=== PATIENT | female | born 1950 | race African-American/Black ===

== ENCOUNTER 2016-05-13 11:25 | Emergency (ER) | payer OTHER, MEDICAID ==
[~2016-05-13] VITALS: Ht 170.2 cm; Wt 88.5 kg
[~2016-05-13 11:25] MED LIST: ALBUTEROL SULF8.5 GM INH; AZITHROMYCIN250 MG ORAL; CIPRO500 MG PO; CIPROFLOXACIN500 M2 ORAL; COLACE100 MG ORAL; CYCLOBENZAPRINE10 MG ORAL; DIOVAN HCT 3201 EAC1 ORAL; FLONASE1 SPRAYS; IBUPROFEN600 MG ORAL; KEFLEX500 MG ORAL; LEVOFLOXACIN500 MG ORAL; MACROBID100 MG ORAL; MAGNESIUM CITR296 M1 PO; NAPROXEN500 M1 ORAL; NAPROXEN500 M2 ORAL; NITROFURANTOIN100 M2 ORAL; NORCO 10/3251 EA ORAL; NORCO 5-325 TA1 EACH ORAL; PHENAZOPYRIDIN200 MG ORAL; PREDNISONE20 M1 PO; PROMETHAZINE-C118 M1 ORAL; SOMA350 MG PO; TRAMADOL HCL50 MG ORAL
[2016-05-13 11:31] VITALS: BP 155/84
--- NOTE | 2016-05-13 12:05 | Emergency Room Report ---
History of Present Illness General Chief Complaint: Pain Source: Patient Present Illness HPI The patient fell onto her R shoulder a week ago. She fell against the door and hit her right shoulder - no LOC. She is unable to raise her hand above her shoulder. The pain is still persisting. She's been taking Lizella 7.5s. In addition to that she has increase in right flank pain with history of sciatica. She's had pain like the flank pain in the past. She denies any dysuria or fever. Denies any back injury, saddle numbness, weakness. She requests a shot for pain. No headache, rashes, NVD. Allergies: Coded Allergies: AMOXICILLIN (Verified Allergy, Severe, HIVES,ITCHING, 06/04/08) PENICILLINS (Unverified Allergy, Unknown, 04/30/14) Patient History Past Medical History: see triage record Social History: Reports: smoking Social History Narrative at home Last Menstrual Period: menopause Reviewed Nursing Documentation: PMH: Agreed, PSxH: Agreed Nursing Documentation-PMH Past Medical History: No History, Except For Hx Hypertension: Yes Hx Gastrointestinal Problems: Yes - apendicitis, hysterectomy Hx Neurological Problems: No - osteoarthritis Review of Systems All Other Systems: negative except mentioned in HPI Physical Exam Vital Signs Date Time Temp Pulse Resp B/P Pulse Ox O2 Delivery O2 Flow Rate FiO2 05/13/16 11:31 97.9 73 14 155/84 97 Room Air Musculoskeletal: other - shoulder pain with decreased ROM, no crepetance or deformity. No warmth. Elbow and wrist without pain. No neck pain. Pain in lower back = musclar. Able to sit, ambulate without difficulty Neurologic: alert, oriented x3, motor strength/tone normal, DTRs symmetric, sensory intact, cerebellar normal, normal gait, speech normal Psychiatric: mood/affect normal Reflexes: 2+ knee (R), 2+ knee (L) Skin: normal inspection, no rash Medical Decision Making Diagnostic Impression: Primary Impression: Shoulder contusion Qualified Codes: S40.011A - Contusion of right shoulder, initial encounter Additional Impression: Chronic low back pain with sciatica Qualified Codes: M54.41 - Lumbago with sciatica, right side; G89.29 - Other chronic pain ER Course Patient presents with shoulder pain post fall 1 week ago. Ddx: fx, contusion, bursitis, DJD amongst others. Xray indicated. Also analgesia also indicated. She states sciatica is her usual problem. UA checked. Xray with DJD, no fx. Splint applied by tech. Position good and provides relief. Also neurovasc checked by me is normal. Pain improved (smiling). She states has enough norco. Patient stable for outpatient observation and treatment. Laboratory Tests Test 05/13/16 12:18 Urine Color Pale yellow Urine Appearance Slightly cloudy Urine pH 6.5 (4.5-8.0) Urine Specific [place] 1.010 (1.005-1.035) Urine Protein Negative (NEGATIVE) Urine Glucose (UA) Negative (NEGATIVE) Urine Ketones Negative (NEGATIVE) Urine Occult Blood 1+ (NEGATIVE) H Urine Nitrite Negative (NEGATIVE) Urine Bilirubin Negative (NEGATIVE) Urine Urobilinogen Normal MG/DL (0.0-1.0) Urine Leukocyte Esterase 3+ (NEGATIVE) H Urine RBC 2-4 /HPF (0 - 2) H Urine WBC 10-15 /HPF (0 - 2) H Urine Squamous Epithelial Cells Moderate /LPF (NONE/OCC) H Urine Bacteria Moderate /HPF (NONE) H Other X-Ray Diagnostic Results Other X-Ray Diagnostic Results : X-Ray Ordered: R shoulder EP Interpretation: Yes Findings: no fractures, no dislocation, no soft tissue swelling, other - DJD Number of Views: 3 Last Vital Signs Date Time Temp Pulse Resp B/P Pulse Ox O2 Delivery O2 Flow Rate FiO2 05/13/16 13:28 97.9 05/13/16 13:28 68 14 145/80 100 Room Air Status: improved Disposition: HOME, SELF-CARE Condition: Improved Scripts Ibuprofen* (MOTRIN*) 600 Mg Tablet 600 MG ORAL Q6H Y for For Pain, #20 TAB Prov: Xavi Mayo M.D. 05/13/16 Xavi Mayo M.D. May 13, 2016 12:05
[2016-05-13] MEDS ORDERED: Ketorolac 60mg Inj IM ONE (12:15)
[2016-05-13] MEDS ORDERED: Oxycodone/Acetaminophen 5-325 ORAL ONE (12:15)
[2016-05-13 12:38] LABS: APPEARANCE,URINE SLIGHTLY CLOUDY; KETONES,URINE NEGATIVE (NEGATIVE); LEUKOCYTE ESTERASE ,URINE 3+ (NEGATIVE); NITRITE,URINE NEGATIVE (NEGATIVE); PH,URINE 6.5 (4.5-8.0); PROTEIN,URINE NEGATIVE (NEGATIVE); UROBILINOGEN,URINE NORMAL MG/DL (0.0-1.0)
[2016-05-13] MEDS ORDERED: IBUPROFEN600 MG ORAL (13:04)
[2016-05-13 13:28] VITALS: BP 145/80
[2016-05-13 13:30] LABS: BACTERIA,URINE MODERATE /HPF; SQUAMOUS EPITHELIAL CELL,UR MODERATE /LPF (NONE/OCC)
--- NOTE | 2016-05-14 10:25 | Diagnostic Imaging Report ---
Indications: Fall, right shoulder injury and pain Technique: 3 views right shoulder. Findings: Comparison: None No fracture, dislocation, joint space widening , surrounding soft tissue swelling/foreign body/other abnormality, or other acute changes are identified. IMPRESSION: No evidence of acute injury to the right shoulder.
== END 2016-05-13 13:29 | disposition home or self-care (01) ==
LOC: EMR 12:00
DX: S40.011A Contusion of right shoulder, initial encounter (principal); M54.41 Lumbago with sciatica, right side; G89.29 Other chronic pain; Z90.710 Acquired absence of both cervix and uterus; I10 Essential (primary) hypertension; F17.200 Nicotine dependence, unspecified, uncomplicated; M19.90 Unspecified osteoarthritis, unspecified site; Z88.0 Allergy status to penicillin; Z88.1 Allergy status to other antibiotic agents; W22.09XA Striking against other stationary object, initial encounter; Y92.9 Unspecified place or not applicable; Y99.8 Other external cause status
CPT/HCPCS: 81003; 87086; 96372; 99283

== ENCOUNTER 2016-08-19 18:12 | Emergency (ER) | payer OTHER, MEDICAID ==
[~2016-08-19] VITALS: Ht 170.2 cm; Wt 86.2 kg
[2016-08-19 18:30] VITALS: BP 102/75
[2016-08-19] MEDS ORDERED: NAPROXEN500 M1 ORAL (18:42)
[2016-08-19] MEDS ORDERED: ROBAXIN-750750 MG PO (18:42)
--- NOTE | 2016-08-19 18:43 | Emergency Room Report ---
History of Present Illness General Chief Complaint: Lower Back Pain or Injury Source: Patient Present Illness HPI 66 y/o female c/o chronic right sided low back pain and right shoulder pain. States she had injured herself several months ago and was diagnosed with sciatica and shoulder pain and has occasional flair ups where she gets a shot of toradol to resolve her symptoms. States she is currently having a flair up and is requesting toradol for her pain. States pain is right lateral lumbar region and right superior / clavicle region and worse with bending and lifting and better with rest and heat. Patient denies any numbness, tingling, pressure , paralysis, cyanosis, bruising, loss of sensation, or loss of range of motion. Denies any lower extremity weakness, incontinence, foot drop, saddle anesthesia , numbness, or paralysis. Allergies: Coded Allergies: AMOXICILLIN (Verified Allergy, Severe, HIVES,ITCHING, 06/04/08) PENICILLINS (Unverified Allergy, Unknown, 04/30/14) Patient History Past Medical History: see triage record Past Surgical History: none Pertinent Family History: none Reviewed Nursing Documentation: PMH: Agreed, PSxH: Agreed Nursing Documentation-PMH Hx Hypertension: Yes Hx Gastrointestinal Problems: Yes - apendicitis, hysterectomy Hx Neurological Problems: No - osteoarthritis Review of Systems All Other Systems: negative except mentioned in HPI Physical Exam Vital Signs Date Time Temp Pulse Resp B/P Pulse Ox O2 Delivery O2 Flow Rate FiO2 08/19/16 18:24 98.2 93 14 102/75 96 Room Air Sp02 EP Interpretation: reviewed, normal General Appearance: no apparent distress, alert, GCS 15, non-toxic Head: normocephalic, atraumatic Eyes: bilateral eye PERRL, bilateral eye normal inspection ENT: normal ENT inspection Neck: full range of motion, no bony tend, supple/symm/no masses Respiratory: normal breath sounds, speaking full sentences Cardiovascular #1: normal capillary refill Musculoskeletal: back normal, gait/station normal, normal range of motion, tender - right perilumbar region and right supraclavicular region assoc w/ muscle spasm present Neurologic: alert, oriented x3, responsive, motor strength/tone normal, sensory intact, speech normal Psychiatric: judgement/insight normal, memory normal, mood/affect normal, no suicidal/homicidal ideation Reflexes: 2+ knee (R), 2+ knee (L) Skin: normal color, no rash, warm/dry, well hydrated Lymphatic: no adenopathy Medical Decision Making PA Attestation Dr. Jurado is my supervising physician with whom patient management has been discussed with. Diagnostic Impression: Primary Impression: Unspecified injury of lower back, sequela Additional Impressions: Muscle spasm of back Muscle spasm of right shoulder ER Course Pt. presents to the ED c/o low back pain, shoulder pain Ddx considered but are not limited to fracture, contusion, spinal stenosis, dislocation Vital signs: are WNL, pt. is afebrile H&PE are most consistent with muscle spasm of back ORDERS: none required at this time, the diagnosis is clinical ED INTERVENTIONS: Toradol DISCHARGE: At this time pt. is stable for d/c to home. Will provide printed patient care instructions, and any necessary prescriptions. Care plan and follow up instructions have been discussed with the patient prior to discharge. Last Vital Signs Date Time Temp Pulse Resp B/P Pulse Ox O2 Delivery O2 Flow Rate FiO2 08/19/16 18:24 98.2 93 14 102/75 96 Room Air Status: unchanged Disposition: HOME, SELF-CARE Condition: Stable Scripts Methocarbamol* (ROBAXIN-750*) 750 Mg Tablet 750 MG PO TID, #30 TAB 0 Refills Prov: IBRAHIMA TALBERT 08/19/16 Naproxen* (NAPROXEN*) 500 Mg Tablet. 500 MG ORAL TWICE A DAY, #30 TAB Prov: IBRAHIMA TALBERT 08/19/16 Patient Instructions: Low Back Sprain With Rehab-SportsMed, Trigger Point Injection Additional Instructions: Take medication as directed. Advise patient to use RICE therapy and avoid exercises for the next 2-3 weeks to help rest the muscles. Patient instructed to massage the muscles that are tight or tense, put ice for 5-7 minutes or a frozen bag of peas or cold gel pack on the area for 20 minutes at a time, a few times a day, put heat on the area to reduce pain and stiffness by either taking a hot shower or hot bath, or put a hot towel on the area for no more than 20 minutes at a time. Patient instructed to not use anything too hot that could burn your skin. IBRAHIMA TALBERT Aug 19, 2016 18:43
[2016-08-19] MEDS ORDERED: Ketorolac 30mg Inj IM ONE (18:45)
[2016-08-19 18:47] VITALS: BP 102/75
== END 2016-08-19 19:54 | disposition home or self-care (01) ==
LOC: EMR 18:30
DX: S39.92XS Unspecified injury of lower back, sequela (principal); M62.830 Muscle spasm of back; M62.838 Other muscle spasm; M25.511 Pain in right shoulder; Z88.0 Allergy status to penicillin; I10 Essential (primary) hypertension; M19.90 Unspecified osteoarthritis, unspecified site; Z90.710 Acquired absence of both cervix and uterus; X58.XXXS Exposure to other specified factors, sequela
CPT/HCPCS: 96372; 99284; J1885

== ENCOUNTER 2016-10-16 16:07 | Emergency (ER) | payer OTHER, MEDICAID ==
[~2016-10-16] VITALS: Ht 170.2 cm; Wt 84.8 kg
[~2016-10-16 16:07] MED LIST changes: +ROBAXIN-750750 MG PO
[2016-10-16 16:26] VITALS: BP 113/81
[2016-10-16] MEDS ORDERED: NORCO 10-325 T1 EACH ORAL (16:30)
--- NOTE | 2016-10-16 17:56 | Emergency Room Report ---
History of Present Illness General Chief Complaint: Headache Source: Patient Present Illness HPI 66 y/o female c/o new onset of headache x 1 week. States pain is in occipital region of head and radiates into the neck. States she had a fall in May 2016 which was the initial onset of headache and right shoulder pain. States that she sees PT and is managed for her shoulder by PCP. Takes [place] for her GARCÍA w/o improvement. Denies any current n/v/f/c/d, abd pain, back pain, photophobia, phonophobia, CP, or SOB Allergies: Coded Allergies: AMOXICILLIN (Verified Allergy, Severe, HIVES,ITCHING, 06/04/08) PENICILLINS (Unverified Allergy, Unknown, 04/30/14) Patient History Past Medical History: see triage record Past Surgical History: none Pertinent Family History: none Now: No Reviewed Nursing Documentation: PMH: Agreed, PSxH: Agreed Nursing Documentation-PMH Hx Hypertension: Yes Hx Gastrointestinal Problems: Yes - apendicitis, hysterectomy Hx Neurological Problems: No - osteoarthritis Review of Systems All Other Systems: negative except mentioned in HPI Physical Exam Vital Signs Date Time Temp Pulse Resp B/P Pulse Ox O2 Delivery O2 Flow Rate FiO2 10/16/16 16:26 98.4 80 16 113/81 98 Room Air Sp02 EP Interpretation: reviewed, normal General Appearance: no apparent distress, alert, GCS 15, non-toxic Head: normocephalic, atraumatic Eyes: bilateral eye EOMI, bilateral eye PERRL, bilateral eye normal inspection ENT: hearing grossly normal, normal pharynx, no angioedema, normal voice Neck: full range of motion, supple/symm/no masses Respiratory: chest non-tender, lungs clear, normal breath sounds, speaking full sentences Cardiovascular #1: regular rate, rhythm, no edema Gastrointestinal: non tender, soft Musculoskeletal: back normal, gait/station normal, decreased range of motion - right shoulder, other - 4/5 strength RUE, 5/5 LUE, LLE and RLE Neurologic: alert, oriented x3, responsive, bobbin handler III-XII nml as tested, motor strength/tone normal, sensory intact, speech normal, other - Unable to fully evaluate pronator drift due to shoulder injury. Romberg Negative Psychiatric: mood/affect normal Skin: normal color, no rash, warm/dry, well hydrated Medical Decision Making PA Attestation Dr. Baron is my supervising physician with whom patient management has been discussed with. Diagnostic Impression: Primary Impression: Headache Qualified Codes: G44.201 - Tension-type headache, unspecified, intractable ER Course Pt. presents to the ED c/o headache Ddx considered but are not limited to CVA, intracranial hemorrhage, concussion, skull fracture, spinal fracture Vital signs: are WNL, pt. is afebrile H&PE are most consistent with headache ORDERS: CT Head w/o contrast ED INTERVENTIONS: none required at this time. DISCHARGE: At this time pt. is stable for d/c to home. Will provide printed patient care instructions, and any necessary prescriptions. Care plan and follow up instructions have been discussed with the patient prior to discharge. Last Vital Signs Date Time Temp Pulse Resp B/P Pulse Ox O2 Delivery O2 Flow Rate FiO2 10/16/16 16:26 98.4 80 16 113/81 98 Room Air Disposition: HOME, SELF-CARE Condition: Stable Scripts Methocarbamol* (ROBAXIN-750*) 750 Mg Tablet 750 MG PO TID, #30 TAB 0 Refills Prov: IBRAHIMA TALBERT P.A. 10/16/16 Naproxen* (NAPROXEN*) 500 Mg Tablet. 500 MG ORAL TWICE A DAY for 10 Days, #20 TAB Prov: IBRAHIMA TALBERT P.A. 10/16/16 Referrals: NON PHYSICIAN (PCP) Patient Instructions: General Headache Without Cause IBRAHIMA TALBERT Oct 16, 2016 17:56
[2016-10-16] MEDS ORDERED: NAPROXEN500 M1 ORAL (18:39)
[2016-10-16] MEDS ORDERED: ROBAXIN-750750 MG PO (18:39)
[2016-10-16 19:02] VITALS: BP 113/81
--- NOTE | 2016-10-17 10:06 | Diagnostic Imaging Report ---
Indications: Headaches Technique: Spiral acquisitions obtained through the brain. Angled axial and coronal 5 x 5 mm slices were reconstructed. Total dose length product 1467 mGycm. CTDI vol(s) 70 mGy. Dose reduction achieved using automated exposure control Comparison: 03/26/2011 Findings: Lacunar infarcts are seen in the right caudate head, right posterior lentiform nucleus, anterior limb of the right internal capsule, left thalamus. No acute hemorrhage or edema. No mass effect or midline shift. Normal etienne-white differentiation. Visualized orbits and sinuses are unremarkable. Intact calvarium. There is normal for age ventricles and extra-axial CSF spaces. Mild periventricular the white matter ischemic changes noted. 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 Negative for acute intracranial bleed or mass effect This agrees with the preliminary interpretation provided overnight by Dr. Bryant The CT scanner at [facility] is accredited by the [employer] and the scans are performed using protocols designed to limit radiation exposure to as low as reasonably achievable to attain images of sufficient resolution adequate for diagnostic evaluation.
== END 2016-10-16 19:02 | disposition home or self-care (01) ==
LOC: EMR 16:42
DX: R51 Headache (principal); I10 Essential (primary) hypertension; Z90.710 Acquired absence of both cervix and uterus; Z88.0 Allergy status to penicillin
CPT/HCPCS: 70450; 99284

== ENCOUNTER 2017-01-15 21:49 | Emergency (ER) | payer OTHER, MEDICAID ==
[~2017-01-15] VITALS: Ht 170.2 cm; Wt 83.5 kg
[~2017-01-15 21:49] MED LIST changes: +NORCO 10-325 T1 EACH ORAL
--- NOTE | 2017-01-15 22:12 | Emergency Room Report ---
History of Present Illness General Chief Complaint: Abdominal Pain Source: Patient Present Illness HPI Is a 66-year-old female with history of chronic back and abdominal pain. She presents with increasing pain the last 3 weeks. Worse tonight. Pain is severe 10 out of 10. Her whole back is hurting and also abdomen. No nausea no vomiting. No diarrhea. No hematuria. No urinary complaint. No radiation. Worse with movement and palpation. Allergies: Coded Allergies: AMOXICILLIN (Verified Allergy, Severe, HIVES,ITCHING, 06/04/08) PENICILLINS (Unverified Allergy, Unknown, 04/30/14) Patient History Past Medical History: see triage record, old chart reviewed Past Surgical History: hysterectomy Pertinent Family History: none Social History: Reports: smoking Last Menstrual Period: none Now: No Immunizations: other Reviewed Nursing Documentation: PMH: Agreed, PSxH: Agreed Nursing Documentation-PMH Hx Hypertension: Yes Hx Gastrointestinal Problems: Yes - apendicitis, hysterectomy Hx Neurological Problems: No - osteoarthritis Review of Systems Eye: Denies: eye pain, blurred vision ENT: Denies: ear pain, nose congestion, throat swelling Respiratory: Denies: cough, shortness of breath Cardiovascular: Denies: chest pain, palpitations Gastrointestinal: Reports: abdominal pain, Denies: diarrhea, nausea, vomiting Musculoskeletal: Reports: back pain, Denies: joint pain Skin: Denies: rash Neurological: Denies: headache, numbness Endocrine: Denies: increased thirst, increased urine Hematologic/Lymphatic: Denies: easy bruising All Other Systems: negative except mentioned in HPI Physical Exam Vital Signs Date Time Temp Pulse Resp B/P (MAP) Pulse Ox O2 Delivery O2 Flow Rate FiO2 01/15/17 21:53 98.2 83 22 148/96 98 Room Air vitals normal Sp02 EP Interpretation: reviewed, normal General Appearance: well appearing, no apparent distress, alert Head: normocephalic, atraumatic Eyes: bilateral eye PERRL, bilateral eye EOMI ENT: hearing grossly normal, normal pharynx Neck: full range of motion, supple, no meningismus Respiratory: chest non-tender, lungs clear, normal breath sounds Cardiovascular #1: regular rate, rhythm, no murmur Gastrointestinal: normal bowel sounds, no mass, no organomegaly, no bruit, non- distended, tenderness - Diffuse tenderness Musculoskeletal: back normal, gait/station normal, normal range of motion Psychiatric: mood/affect normal Skin: warm/dry Medical Decision Making Diagnostic Impression: Primary Impression: Abdominal pain of unknown etiology Additional Impressions: UTI (urinary tract infection) Qualified Codes: N30.00 - Acute cystitis without hematuria Pancreatitis Qualified Codes: K85.90 - Acute pancreatitis without necrosis or infection, unspecified Opioid dependence Qualified Codes: F11.20 - Opioid dependence, uncomplicated ER Course Patient with acute exacerbation of chronic abdominal pain. No evidence of obstruction. We'll discharge home. Patient pain is better. Lab Results Impression labs with elevated lipase CT/MRI/US Diagnostic Results CT/MRI/US Diagnostic Results : Imaging Test Ordered: CT abdomen and pelvis Impression Read by radiologist: No now obstruction. Last Vital Signs Date Time Temp Pulse Resp B/P (MAP) Pulse Ox O2 Delivery O2 Flow Rate FiO2 01/15/17 21:53 98.2 83 22 148/96 98 Room Air Status: improved Disposition: HOME, SELF-CARE Condition: Stable Scripts Cephalexin* (KEFLEX*) 500 Mg Capsule 500 MG ORAL TID, #21 CAP 0 Refills Prov: WILBERT PAN M.D. 01/16/17 Patient Instructions: Abdominal Pain, Adult Additional Instructions: Followup your Dr. in 2-3 days. Take your pain medication. Return if worse. WILBERT PAN M.D. Jan 15, 2017 22:12
[2017-01-15] MEDS ORDERED: HYDROmorphone 1mg/ml Carpuject IVP ONE ×2 (22:15→23:30)
[2017-01-15] MEDS ORDERED: Tubing IV Cassette IV ONE (22:39)
[2017-01-15 22:55] LABS: BASOPHILS % (AUTO) 1.5 % (0.0-2.0); EOSINOPHILS % (AUTO) 1.6 % (0.0-3.0); LYMPHOCYTES % (AUTO) 7.9 % (20.0-45.0); MEAN CORPUSCULAR HEMOGLOBIN 29.2 PG (27.0-31.0); MEAN CORPUSCULAR HGB CONC 30.4 G/DL (32.0-36.0); MEAN CORPUSCULAR VOLUME 96 FL (80-99); MEAN PLATELET VOLUME 9.3 FL (6.5-10.1); MONOCYTES % (AUTO) 4.3 % (1.0-10.0); NEUTROPHILS % (AUTO) 84.6 % (45.0-75.0); PLATELET COUNT 206 K/UL (150-450); RED BLOOD COUNT 4.65 M/UL (4.20-5.40); RED CELL DISTRIBUTION WIDTH 14.9 % (11.6-14.8); WHITE BLOOD COUNT 17.5 K/UL (4.8-10.8)
[2017-01-15 22:56] LABS: APPEARANCE,URINE CLEAR; KETONES,URINE NEGATIVE (NEGATIVE); LEUKOCYTE ESTERASE ,URINE 3+ (NEGATIVE); NITRITE,URINE NEGATIVE (NEGATIVE); PH,URINE 7 (4.5-8.0); PROTEIN,URINE NEGATIVE (NEGATIVE); UROBILINOGEN,URINE NORMAL MG/DL (0.0-1.0)
[2017-01-15] MEDS ORDERED: Ketorolac 30mg Inj IV ONE (23:00)
[2017-01-15 23:03] LABS: BACTERIA,URINE OCCASIONAL /HPF; SQUAMOUS EPITHELIAL CELL,UR FEW /LPF (NONE/OCC)
[2017-01-15 23:14] LABS: ALANINE AMINOTRANSFERASE 19 U/L (12-78); ALBUMIN/GLOBULIN RATIO 1.1 (1.0-2.7); ANION GAP 7 mmol/L (5-15); ASPARTATE AMINO TRANSFERASE 15 U/L (15-37); CALCIUM 12.5 MG/DL (8.5-10.1); CARBON DIOXIDE 27 MMOL/L (21-32); CHLORIDE 105 MMOL/L (98-107); CREATININE 1.2 MG/DL (0.55-1.30); GLOMERULAR FILTRATION RATE 54.3 mL/min (>60); LIPASE 720 U/L (73-393); POTASSIUM 4.3 MMOL/L (3.5-5.1); SODIUM 139 MMOL/L (136-145); TOTAL PROTEIN 7.8 G/DL (6.4-8.2)
[2017-01-15] MEDS ORDERED: cefTRIAXone 1 GM in NS 55 ML IVPB ONE (23:30)
[2017-01-16] MEDS ORDERED: KEFLEX500 MG ORAL (00:16)
[2017-01-16 00:18] VITALS: BP 125/90
[2017-01-16 00:22] VITALS: BP 125/90
--- NOTE | 2017-01-16 09:19 | Diagnostic Imaging Report ---
Indication: Abdominal pain Technique: Spiral acquisitions obtained through the abdomen and pelvis. No oral contrast utilized, per emergency room physician request No IV contrast utilized, per referring physician request.. Multiplanar reconstructions were generated. Total dose length product a 67 mGycm. CTDIvol(s) 16 mGy. Dose reduction achieved using automated exposure control Comparison: 10/14/2013 Findings: There is some image degradation due to respiratory motion artifact. There is a 4 mm calcification at the level of the ureterovesical junction on the right. This is not evident previously. However, no hydronephrosis or hydroureter is demonstrated. Again demonstrated are bilateral renal calyceal calculi. Previously demonstrated right renal cysts are less evident currently, likely obscured due to the motion artifact. Upper pole lesion is equivocally slightly visible. Again demonstrated is evidence of prior proximal colectomy and ileocolic anastomosis. There is no evidence of diverticulosis or diverticulitis. No small bowel distention. No free or loculated intraperitoneal air or fluid. Distal esophagus, stomach, duodenum are unremarkable. The lack of IV contrast limits assessment of solid organs. The liver demonstrates numerous calcifications. Multiple subcentimeter low-attenuation lesions are again demonstrated scattered throughout the liver. The spleen demonstrates some calcifications. The gallbladder, bile ducts, pancreas, right adrenal are unremarkable. There is mild diffuse prominence of the left adrenal, similar to prior. The uterus is absent. No pelvic mass or adenopathy. No retroperitoneal or mesenteric mass or adenopathy The lungs demonstrate a calcified granuloma at the right lung base. There is groundglass opacity throughout much of the lower lobes. Granulomatous lymph node calcifications are seen in the right pulmonary hilum. The bones demonstrate degenerative spondylosis changes. Impression: 4 mm calcification at the level of the right ureterovesical junction. Not evident previously, so may reflect nonobstructive or intermittently obstructive calculus at the ureterovesical junction, versus a recently passed calculus in the bladder lumen. No associated hydronephrosis or hydroureter Bilateral nonobstructive intrarenal calculi are again demonstrated Evidence of prior proximal colectomy and ileocolic anastomosis Evidence of old granulomatous disease in the right lung, right pulmonary hilum, liver, and spleen Groundglass opacity within the visualized lower lobes bilaterally, nonspecific, may reflect pulmonary edema. Increased from the prior study. Diffuse prominent left adrenal, unchanged, without discrete mass Subcentimeter low-attenuation lesion within the liver, too small to characterize, stable, most likely benign simple cysts or bile hamartomas Note that previously demonstrated right renal cysts are less well visualized, due to motion artifact Other findings as noted, including degenerative spondylosis, prior hysterectomy This agrees with the preliminary interpretation provided overnight by [facility] teleradiology service. The CT scanner at [facility] is accredited by the [employer] and the scans are performed using protocols designed to limit radiation exposure to as low as reasonably achievable to attain images of sufficient resolution adequate for diagnostic evaluation.
== END 2017-01-16 00:26 | disposition home or self-care (01) ==
LOC: EMR 22:14
DX: R10.9 Unspecified abdominal pain (principal); N39.0 Urinary tract infection, site not specified; G89.29 Other chronic pain; F11.20 Opioid dependence, uncomplicated; I10 Essential (primary) hypertension; N20.0 Calculus of kidney; Z90.710 Acquired absence of both cervix and uterus; Z90.49 Acquired absence of other specified parts of digestive tract; Z88.0 Allergy status to penicillin
CPT/HCPCS: 36415; 74176; 80053; 80307; 81003; 83690; 85025; 96361; 96365; 96375; 99284; J0696; J1170; J1885; J2405

== ENCOUNTER 2017-06-14 11:30 | Emergency (ER) | payer OTHER, MEDICAID ==
[~2017-06-14] VITALS: Ht 170.2 cm; Wt 84.4 kg
[2017-06-14] MEDS ORDERED: ROBAXIN500 MG PO (12:49)
[2017-06-14] MEDS ORDERED: LIDOCAINE700 M1 TP (12:49)
[2017-06-14] MEDS ORDERED: COLACE100 MG ORAL (12:49)
--- NOTE | 2017-06-14 12:51 | Emergency Room Report ---
History of Present Illness General Chief Complaint: Pain Present Illness HPI 66 yo female patient presents to ER with multiple musculoskeletal complaints. Patient complains of right shoulder, neck, back, and sciatica pain. Reports chronic issues, denies new or worsening of radiation or pain. Patient requesting pain medication, requesting Tramadol and muscle relaxant. Denies recent injury. Patient reports currently being seen by specialist for treatment. Patient reports recent MRIs performed and appointments with physicians to discuss surgery are scheduled. Denies back surgery. Patient reports chronic pain; reports currently taking Bonham without relief of symptoms. Patient also complains of constipation x1 day; denies diarrhea, sharp abdominal pain. Denies blood in stool, dysuria, hematuria. Denies fever, chest pain, SOB, rash. Denies recent illness, cough, GARCÍA, vision changes, ear pain, sore throat. Denies bowel or bladder incontinence. Denies cancer or IVDA. Reports hx of smoking cigarettes. Mylotarg and symptoms Allergies: Coded Allergies: AMOXICILLIN (Verified Allergy, Severe, HIVES,ITCHING, 06/04/08) PENICILLINS (Unverified Allergy, Unknown, 04/30/14) Patient History Past Medical History: see triage record Reviewed Nursing Documentation: PMH: Agreed; PSxH: Agreed Nursing Documentation-PMH Hx Hypertension: Yes Hx Gastrointestinal Problems: Yes - apendicitis, hysterectomy Hx Neurological Problems: No - osteoarthritis Review of Systems All Other Systems: negative except mentioned in HPI Physical Exam Vital Signs Date Time Temp Pulse Resp B/P (MAP) Pulse Ox O2 Delivery O2 Flow Rate FiO2 06/14/17 11:44 97.8 69 20 168/86 99 Room Air 97.9 Sp02 EP Interpretation: reviewed, normal General Appearance: well appearing, no apparent distress, alert, GCS 15, non- toxic Head: normocephalic, atraumatic Eyes: bilateral eye normal inspection, bilateral eye PERRL ENT: hearing grossly normal, normal pharynx, no angioedema, normal voice, uvula midline, moist mucus membranes, other - no uvula deviation Neck: full range of motion, no bony tend Respiratory: lungs clear, normal breath sounds, no rhonchi, no respiratory distress, no accessory muscle use, no wheezing, speaking full sentences Cardiovascular #1: regular rate, rhythm, no edema Gastrointestinal: non tender, soft, no mass, non-distended, no guarding, no rebound, other - negative Rovsing, negative Lee Genitourinary: no CVA tenderness Musculoskeletal: back normal, digits/nails normal, gait/station normal, normal range of motion, non-tender, no calf tenderness Neurologic: alert, oriented x3, responsive, clinical documentation specialist III-XII nml as tested, motor strength/tone normal, sensory intact, normal gait Psychiatric: mood/affect normal Skin: no rash, other - no blisters, no vesicles Lymphatic: no adenopathy Medical Decision Making PA Attestation Dr. Villavicencio is my supervising Physician whom patient management has been discussed with. Diagnostic Impression: Primary Impression: Constipation Additional Impression: Pain ER Course Pt. presents to the ED c/o MSK pain and constipation. Ddx considered but are not limited to sprain, strain, constipation, drug seeking , cauda equina, AAA, shingles. Low suspicion for cauda equina, no bowel or bladder incontinence or retention. No abdominal pain, negative Lee, negative Rovsing, no TTP at McBurney's point , no blood pressure elevation, nontoxic appearing, low suspicion for AAA or acute abdomen pathology currently. CT performed in 2016, no obstruction visualized at that time. No rash, no vesicles, no blistering, low suspicion for shingles. No swelling, no warmth of joints, no erythema no bony tenderness, no bony stepoff, does not require imaging at this time. Vital signs: are WNL, pt. is afebrile. Patient blood pressure elevated, hx of HTN, no chest pain, no SOB, no GARCÍA or vision changes, does not require tx in ER, followup with PCP for treatment and management. Return to ER immediately if symptoms develop. ER COURSE On initial exam, patient resting comfortably in bed, in no acute distress. No imaging or orders required at this time, no recent injury. CURES shows prescription for Bonham filled 8 days ago, no muscle relaxant. Patient request Tramadol and muscle relaxant. Informed patient no opioid or opioid prescription given will be provided. PE benign, no abdominal pain, no rash, negative Rovsing, negative Lee, no CVA tenderness, nontoxic appearing, no fever, speaking without difficulty, patient does not require workup. Will treat for constipation. Patient visualized walking without difficulty, no problems with movement or ambulation. Vitals stable prior to discharge. Stable for discharge to home. Don't smoke. DISCHARGE: -Rx provided for Robaxin, 10 pills provided, may cause drowsiness, do not drink , drive or operate heavy machinery while on medication. -Rx provided for Lidocaine patch -Rx provided for Colace At this time pt. is stable for d/c to home. Patient is resting comfortably, in no acute distress, nontoxic appearing, talking without difficulty. Will provide printed patient care instructions, and any necessary prescriptions. Patient instructed to follow with primary care provider in 3 - 5 days, discuss followup at that time. Care plan and follow up instructions have been discussed with the patient prior to discharge. Patient instructed on RICE method: rest, ice, compression, elevation. Patient instructed to WBAT Take medications as directed. Patient questions asked and answered. Patient reports understanding and agreement to treatment plan. ER precautions given, patient instructed to return to ER immediately for any new or worsening of symptoms including but not limited to chest pain, SOB, abdominal pain, blood in stool or urine, intractable vomiting, vision changes or loss. Last Vital Signs Date Time Temp Pulse Resp B/P (MAP) Pulse Ox O2 Delivery O2 Flow Rate FiO2 06/14/17 11:44 97.8 69 20 168/86 99 Room Air 97.9 Disposition: HOME, SELF-CARE Condition: Stable Scripts Methocarbamol* (ROBAXIN*) 500 Mg Tablet 500 MG PO BID, #10 TAB 0 Refills Prov: Davis Phillips 06/14/17 Docusate Sodium* (COLACE*) 100 Mg Capsule 100 MG ORAL TWICE A DAY for 5 Days, #10 CAP Prov: Davis Phillips 06/14/17 Lidocaine (Lidocaine) 1 Each Adh..patch 700 MG TP DAILY for 7 Days, #7 PATCH Prov: Davis Phillips 06/14/17 Patient Instructions: Constipation, Adult, [id number], Shoulder Pain, Easy-to -Read, Shoulder Range of Motion Exercises Additional Instructions: Followup with primary care provider in 3 -5 days to discuss further treatment plan and referral as needed. Discuss treatment plan with ortho and surgeon. Followup with pain management. Take medications as directed. Drink fluids. Patient questions asked and answered. ER precautions given, patient instructed to return to ER immediately for any new or worsening of symptoms. Davis Phillips Jun 14, 2017 12:51
[2017-06-14 13:24] VITALS: BP 160/85
[2017-06-14 13:26] VITALS: BP 160/85
== END 2017-06-14 13:27 | disposition home or self-care (01) ==
LOC: EMR 12:45
DX: M79.1 Myalgia (principal); K59.00 Constipation, unspecified; Z88.0 Allergy status to penicillin
CPT/HCPCS: 99284

== ENCOUNTER 2018-03-13 17:21 | Emergency (ER) | payer OTHER, MEDICAID ==
[~2018-03-13] VITALS: Ht 172.7 cm; Wt 82.6 kg
[~2018-03-13 17:21] MED LIST changes: +LIDOCAINE700 M1 TP; +ROBAXIN500 MG PO
[2018-03-13 17:25] VITALS: BP 133/89
--- NOTE | 2018-03-13 17:52 | Emergency Room Report ---
History of Present Illness General Chief Complaint: Abdominal Pain Source: Patient Present Illness HPI Patient presents with lower abdominal pain. This been going on for at least 2 days. It's fairly constant. She rates it 7 or 8/10. She doesn't think it's related to her chronic lower back pain that she usually gets a shot of Toradol. The pain radiates down both of her legs but this is more center abdomen even though her back is bothering her also. She denies nausea vomiting or diarrhea. There's been no dysuria. There's been no fevers or chills. She moved her bowels normally this morning. She has COPD and has a chronic cough. Still smoking. No rashes, headache, chest pain, joint pain. No depression. Allergies: Coded Allergies: AMOXICILLIN (Verified Allergy, Severe, HIVES,ITCHING, 06/04/08) PENICILLINS (Unverified Allergy, Unknown, 04/30/14) Patient History Past Medical History: see triage record Past Surgical History: appy, hysterectomy Social History: Reports: smoking, drug use Social History Narrative from home Reviewed Nursing Documentation: PMH: Agreed; PSxH: Agreed Nursing Documentation-PMH Hx Hypertension: Yes Hx Gastrointestinal Problems: Yes - apendicitis, hysterectomy Hx Neurological Problems: No - osteoarthritis Review of Systems All Other Systems: negative except mentioned in HPI Physical Exam Vital Signs Date Time Temp Pulse Resp B/P (MAP) Pulse Ox O2 Delivery O2 Flow Rate FiO2 03/13/18 17:25 98.8 82 18 133/89 96 Room Air Sp02 EP Interpretation: reviewed, normal General Appearance: well appearing, no apparent distress, GCS 15 Head: normocephalic Eyes: bilateral eye normal inspection, bilateral eye PERRL ENT: moist mucus membranes Neck: supple Respiratory: lungs clear, normal breath sounds Cardiovascular #1: regular rate, rhythm Cardiovascular #2: 2+ radial (R) Gastrointestinal: normal inspection, normal bowel sounds, no mass, non- distended, no guarding, no rebound, tenderness - supropubic Genitourinary: no CVA tenderness Musculoskeletal: back normal, gait/station normal, normal range of motion, other - SLR min + bilat Neurologic: alert, oriented x3, grossly normal Psychiatric: mood/affect normal Skin: normal inspection, warm/dry Medical Decision Making Diagnostic Impression: Primary Impression: UTI (urinary tract infection) Qualified Codes: N39.0 - Urinary tract infection, site not specified Additional Impressions: Abdominal pain Qualified Codes: R10.30 - Lower abdominal pain, unspecified Chronic low back pain with sciatica Qualified Codes: M54.40 - Lumbago with sciatica, unspecified side; G89.29 - Other chronic pain ER Course Patient presents with lower abdominal pain. Differential includes UTI, diverticulitis, fibroids, exacerbation of back pain amongst others. Patient be evaluated with labs. The patient be treated with IV hydration and a dose of Toradol. As this is different from usual lower back pain, work up indicated. No imaging indicated. Not surgical abdomen. Labs with normal CBC, CMP. UA with pyuria. Rocephin given. Improved with treatment and pain resolved. Discussed results with patient. Patient stable for outpatient observation and treatment. Laboratory Tests Test 03/13/18 18:05 White Blood Count 7.8 K/UL (4.8-10.8) Red Blood Count 4.28 M/UL (4.20-5.40) Hemoglobin 12.7 G/DL (12.0-16.0) Hematocrit 39.5 % (37.0-47.0) Mean Corpuscular Volume 92 FL (80-99) Mean Corpuscular Hemoglobin 29.8 PG (27.0-31.0) Mean Corpuscular Hemoglobin Concent 32.2 G/DL (32.0-36.0) Red Cell Distribution Width 14.6 % (11.6-14.8) Platelet Count 236 K/UL (150-450) Mean Platelet Volume 11.3 FL (6.5-10.1) H Neutrophils (%) (Auto) 51.4 % (45.0-75.0) Lymphocytes (%) (Auto) 34.8 % (20.0-45.0) Monocytes (%) (Auto) 8.8 % (1.0-10.0) Eosinophils (%) (Auto) 2.7 % (0.0-3.0) Basophils (%) (Auto) 2.4 % (0.0-2.0) H Urine Color Pale yellow Urine Appearance Slightly cloudy Urine pH 6 (4.5-8.0) Urine Specific [place] 1.015 (1.005-1.035) Urine Protein Negative (NEGATIVE) Urine Glucose (UA) Negative (NEGATIVE) Urine Ketones Negative (NEGATIVE) Urine Blood 1+ (NEGATIVE) H Urine Nitrite Negative (NEGATIVE) Urine Bilirubin Negative (NEGATIVE) Urine Urobilinogen Normal MG/DL (0.0-1.0) Urine Leukocyte Esterase 3+ (NEGATIVE) H Urine RBC 2-4 /HPF (0 - 2) H Urine WBC 10-15 /HPF (0 - 2) H Urine Squamous Epithelial Cells Few /LPF (NONE/OCC) Urine Bacteria Few /HPF (NONE) Sodium Level 142 MMOL/L (136-145) Potassium Level 4.1 MMOL/L (3.5-5.1) Chloride Level 107 MMOL/L (98-107) Carbon Dioxide Level 32 MMOL/L (21-32) Anion Gap 3 mmol/L (5-15) L Blood Urea Nitrogen 16 mg/dL (7-18) Creatinine 1.2 MG/DL (0.55-1.30) Estimate Glomerular Filtration Rate 54.2 mL/min (>60) Glucose Level 91 MG/DL (74-106) Calcium Level 12.1 MG/DL (8.5-10.1) H Total Bilirubin 0.3 MG/DL (0.2-1.0) Aspartate Amino Transferase (AST) 12 U/L (15-37) L Alanine Aminotransferase (ALT) 17 U/L (12-78) Alkaline Phosphatase 98 U/L (46-116) Total Protein 7.3 G/DL (6.4-8.2) Albumin 3.9 G/DL (3.4-5.0) Globulin 3.4 g/dL Albumin/Globulin Ratio 1.1 (1.0-2.7) Lipase 176 U/L (73-393) Urine Opiates Screen Negative (NEGATIVE) Urine Barbiturates Screen Negative (NEGATIVE) Phencyclidine (PCP) Screen Negative (NEGATIVE) Urine Amphetamines Screen Negative (NEGATIVE) Urine Benzodiazepines Screen Negative (NEGATIVE) Urine Cocaine Screen Negative (NEGATIVE) Urine Marijuana (THC) Screen Positive (NEGATIVE) H Last Vital Signs Date Time Temp Pulse Resp B/P (MAP) Pulse Ox O2 Delivery O2 Flow Rate FiO2 03/13/18 20:39 98.8 84 18 128/82 98 Room Air Status: improved Disposition: HOME, SELF-CARE Condition: Improved Scripts Nitrofurantoin Macrocrystal (MACRODANTIN*) 50 Mg Capsule 50 MG ORAL FOUR TIMES A DAY, #14 CAP Prov: Xavi Mayo MD 03/13/18 Ibuprofen* (MOTRIN*) 600 Mg Tablet 600 MG ORAL Q6H PRN for For Pain, #20 TAB Prov: Xavi Mayo MD 03/13/18 Xavi Mayo MD Mar 13, 2018 17:52
[2018-03-13] MEDS ORDERED: Ketorolac 30mg Inj IV ONE (18:00)
[2018-03-13 18:34] LABS: BASOPHILS % (AUTO) 2.4 % (0.0-2.0); EOSINOPHILS % (AUTO) 2.7 % (0.0-3.0); HEMATOCRIT 39.5 % (37.0-47.0); HEMOGLOBIN 12.7 G/DL (12.0-16.0); LYMPHOCYTES % (AUTO) 34.8 % (20.0-45.0); MEAN CORPUSCULAR VOLUME 92 FL (80-99); MONOCYTES % (AUTO) 8.8 % (1.0-10.0); NEUTROPHILS % (AUTO) 51.4 % (45.0-75.0); PLATELET COUNT 236 K/UL (150-450); RED BLOOD COUNT 4.28 M/UL (4.20-5.40); RED CELL DISTRIBUTION WIDTH 14.6 % (11.6-14.8); WHITE BLOOD COUNT 7.8 K/UL (4.8-10.8)
[2018-03-13 18:37] LABS: APPEARANCE,URINE SLIGHTLY CLOUDY; BILIRUBIN, URINE NEGATIVE (NEGATIVE); COLOR,URINE PALE YELLOW; GLUCOSE, URINE (UA) NEGATIVE (NEGATIVE); KETONES,URINE NEGATIVE (NEGATIVE); LEUKOCYTE ESTERASE ,URINE 3+ (NEGATIVE); NITRITE,URINE NEGATIVE (NEGATIVE); PH,URINE 6 (4.5-8.0); PROTEIN,URINE NEGATIVE (NEGATIVE); UROBILINOGEN,URINE NORMAL MG/DL (0.0-1.0)
[2018-03-13 18:38] LABS: ANION GAP 3 mmol/L (5-15); BLOOD UREA NITROGEN 16 mg/dL (7-18); CALCIUM 12.1 MG/DL (8.5-10.1); CARBON DIOXIDE 32 MMOL/L (21-32); CHLORIDE 107 MMOL/L (98-107); CREATININE 1.2 MG/DL (0.55-1.30); POTASSIUM 4.1 MMOL/L (3.5-5.1); SODIUM 142 MMOL/L (136-145)
[2018-03-13 18:42] LABS: ALANINE AMINOTRANSFERASE 17 U/L (12-78); ALBUMIN 3.9 G/DL (3.4-5.0); ALBUMIN/GLOBULIN RATIO 1.1 (1.0-2.7); ALKALINE PHOSPHATASE 98 U/L (46-116); ASPARTATE AMINO TRANSFERASE 12 U/L (15-37); BILIRUBIN,TOTAL 0.3 MG/DL (0.2-1.0)
[2018-03-13] MEDS ORDERED: cefTRIAXone 1 GM in NS 55 ML IVPB ONE (19:45)
[2018-03-13] MEDS ORDERED: IBUPROFEN600 MG ORAL (20:30)
[2018-03-13] MEDS ORDERED: MACRODANTIN50 MG ORAL (20:30)
[2018-03-13 20:39] VITALS: BP 128/82
== END 2018-03-13 20:41 | disposition home or self-care (01) ==
LOC: EMR 18:14
DX: N39.0 Urinary tract infection, site not specified (principal); G89.29 Other chronic pain; M54.42 Lumbago with sciatica, left side; M54.41 Lumbago with sciatica, right side; I10 Essential (primary) hypertension; Z90.710 Acquired absence of both cervix and uterus; Z88.0 Allergy status to penicillin
CPT/HCPCS: 36415; 80053; 80307; 81003; 83690; 85025; 87086; 96361; 96365; 96375; 99284; J0696; J1885; J2405

== ENCOUNTER 2018-08-12 09:24 | Inpatient (IN) | payer OTHER, MEDICAID ==
[~2018-08-12] VITALS: Ht 172.7 cm; Wt 82.3 kg
[~2018-08-12 09:24] MED LIST changes: +MACRODANTIN50 MG ORAL
--- NOTE | 2018-08-12 09:44 | NUR ---
ED Nurse Note: pt walked in due to abdominal pain x 3 days, pt stated she has pain all oer the lower part of her abdomen and she is been having lower back pain for 4 years now and has been taking flexeril and norco for that, pt stated that the last time she has bm was 3 days ago. pt is complaining of 8/10 pain, denies nausea and vomiting and reports constipation.
[2018-08-12 09:46] VITALS: BP 125/93
[2018-08-12] MEDS ORDERED: Ketorolac 30mg Inj IV ONE (10:15)
[2018-08-12] MEDS ORDERED: Isovue-300 100ml vial INJ PRN (10:15)
--- NOTE | 2018-08-12 10:16 | Emergency Room Report ---
History of Present Illness General Chief Complaint: Abdominal Pain Source: Patient Present Illness HPI Patient is a 68-year-old female presented after increased lower abdominal pain. Patient reports having pain to bilateral lower quadrants. Patient a prior history of chronic back pain and states that she takes [place] as well as Flexeril regularly for pain. She reports having some prior history of degenerative disc disease to her back. She states she had 2 MRIs in the past. Patient reports having improvement in her pain after taking [place] and states that she has been having decreased bowel movements. She does report having some flatus. She denies any fever or dysuria. Patient had previous partial colectomy after a perforation to her intestine. Allergies: Coded Allergies: AMOXICILLIN (Verified Allergy, Severe, HIVES,ITCHING, 06/04/08) PENICILLINS (Unverified Allergy, Unknown, 04/30/14) Patient History Past Medical History: see triage record Now: No Reviewed Nursing Documentation: PMH: Agreed; PSxH: Agreed Nursing Documentation-PMH Past Medical History: No History, Except For Hx Hypertension: Yes Hx Gastrointestinal Problems: Yes - apendicitis, hysterectomy Hx Neurological Problems: No - osteoarthritis Review of Systems All Other Systems: negative except mentioned in HPI Physical Exam Vital Signs Date Time Temp Pulse Resp B/P (MAP) Pulse Ox O2 Delivery O2 Flow Rate FiO2 08/12/18 09:28 97.9 107 20 125/93 (104) 98 Room Air Sp02 EP Interpretation: reviewed, normal General Appearance: normal inspection, alert, GCS 15, Chronically Ill Head: atraumatic ENT: normal ENT inspection, hearing grossly normal, normal voice Neck: normal inspection, supple, no bony tend, limited range of motion Respiratory: normal inspection, lungs clear, normal breath sounds, no respiratory distress, no retraction, no wheezing Cardiovascular #1: regular rate, rhythm, no edema Gastrointestinal: normal inspection, normal bowel sounds, soft, no guarding, no hernia, tenderness Genitourinary: no CVA tenderness Musculoskeletal: normal inspection, decreased range of motion Neurologic: normal inspection, alert, oriented x3, responsive, physician practice coordinator III-XII nml as tested, speech normal Psychiatric: normal inspection, judgement/insight normal, mood/affect normal Skin: normal inspection, normal color, no rash Medical Decision Making Diagnostic Impression: Primary Impression: Abdominal pain Additional Impressions: Hypercalcemia Chronic low back pain with sciatica ER Course Patient presented for abdominal pain and low back pain. Differential diagnosis include was not limited to gastritis, ulcer, electrolyte abnormality, kidney stone, sciatica, lumbar spine stenosis among others. Because of complexity of patient's case laboratory testing and imaging studies were ordered. Patient was noted to have chronic back pain and has had similar symptoms in the past. Patient was noted to have abnormal laboratory testing with significant hypercalcemia. Patient started on IV fluids. Patient was noted to have some hypercalcemia in the past however on today's visit this was significantly worsened. Dr. Renan Dunbar was contacted for inpatient management due to capitated physician. Labs Test 08/12/18 10:05 08/12/18 10:20 08/12/18 15:45 08/12/18 16:20 White Blood Count 7.0 K/UL (4.8-10.8) Red Blood Count 5.20 M/UL (4.20-5.40) Hemoglobin 15.6 G/DL (12.0-16.0) Hematocrit 46.6 % (37.0-47.0) Mean Corpuscular Volume 90 FL (80-99) Mean Corpuscular Hemoglobin 30.1 PG (27.0-31.0) Mean Corpuscular Hemoglobin Concent 33.6 G/DL (32.0-36.0) Red Cell Distribution Width 14.1 % (11.6-14.8) Platelet Count 266 K/UL (150-450) Mean Platelet Volume 11.9 FL (6.5-10.1) Neutrophils (%) (Auto) 53.6 % (45.0-75.0) Lymphocytes (%) (Auto) 35.3 % (20.0-45.0) Monocytes (%) (Auto) 8.3 % (1.0-10.0) Eosinophils (%) (Auto) 0.9 % (0.0-3.0) Basophils (%) (Auto) 1.8 % (0.0-2.0) Prothrombin Time 10.6 SEC (9.30-11.50) Prothromb Time International Ratio 1.0 (0.9-1.1) Activated Partial Thromboplast Time 33 SEC (23-33) Sodium Level 137 MMOL/L (136-145) Potassium Level 4.0 MMOL/L (3.5-5.1) Chloride Level 99 MMOL/L (98-107) Carbon Dioxide Level 31 MMOL/L (21-32) Anion Gap 7 mmol/L (5-15) Blood Urea Nitrogen 26 mg/dL (7-18) Creatinine 1.3 MG/DL (0.55-1.30) Estimat Glomerular Filtration Rate 49.2 mL/min (>60) Glucose Level 104 MG/DL (74-106) Calcium Level 15.4 MG/DL (8.5-10.1) Total Bilirubin 0.6 MG/DL (0.2-1.0) Aspartate Amino Transf (AST/SGOT) 18 U/L (15-37) Alanine Aminotransferase (ALT/SGPT) 17 U/L (12-78) Alkaline Phosphatase 95 U/L (46-116) Total Protein 9.0 G/DL (6.4-8.2) Albumin 4.7 G/DL (3.4-5.0) Globulin 4.3 g/dL Lipase 280 U/L (73-393) Urine Color Pale yellow Urine Appearance Clear Urine pH 5 (4.5-8.0) Urine Specific [place] 1.020 (1.005-1.035) Urine Protein 3+ (NEGATIVE) Urine Glucose (UA) Negative (NEGATIVE) Urine Ketones 1+ (NEGATIVE) Urine Blood 2+ (NEGATIVE) Urine Nitrite Negative (NEGATIVE) Urine Bilirubin Negative (NEGATIVE) Urine Urobilinogen Normal MG/DL (0.0-1.0) Urine Leukocyte Esterase 1+ (NEGATIVE) Urine RBC 2-4 /HPF (0 - 2) Urine WBC 2-4 /HPF (0 - 2) Urine Squamous Epithelial Cells Few /LPF (NONE/OCC) Urine Bacteria Few /HPF (NONE) Last Vital Signs Date Time Temp Pulse Resp B/P (MAP) Pulse Ox O2 Delivery O2 Flow Rate FiO2 08/12/18 09:46 97.9 98 20 125/93 98 Room Air Status: unchanged Disposition: ADMITTED INPATIENT Condition: Serious Referrals: NON PHYSICIAN (PCP) Mark Perrin MD August 12, 2018 10:16
--- NOTE | 2018-08-12 10:36 | NUR ---
ED Nurse Note: pt was seen by landon, blood drawn and was sent to lab, pt able to give urine sample and was sent to lab. pt medicated and able to tolerate. will continue to monitor
[2018-08-12 11:10] LABS: APPEARANCE,URINE CLEAR; BILIRUBIN, URINE NEGATIVE (NEGATIVE); COLOR,URINE PALE YELLOW; GLUCOSE, URINE (UA) NEGATIVE (NEGATIVE); KETONES,URINE 1+ (NEGATIVE); LEUKOCYTE ESTERASE ,URINE 1+ (NEGATIVE); NITRITE,URINE NEGATIVE (NEGATIVE); PH,URINE 5 (4.5-8.0); PROTEIN,URINE 3+ (NEGATIVE); UROBILINOGEN,URINE NORMAL MG/DL (0.0-1.0)
[2018-08-12 11:13] LABS: BASOPHILS % (AUTO) 1.8 % (0.0-2.0); EOSINOPHILS % (AUTO) 0.9 % (0.0-3.0); HEMATOCRIT 46.6 % (37.0-47.0); HEMOGLOBIN 15.6 G/DL (12.0-16.0); LYMPHOCYTES % (AUTO) 35.3 % (20.0-45.0); MEAN CORPUSCULAR VOLUME 90 FL (80-99); MONOCYTES % (AUTO) 8.3 % (1.0-10.0); NEUTROPHILS % (AUTO) 53.6 % (45.0-75.0); PLATELET COUNT 266 K/UL (150-450); RED CELL DISTRIBUTION WIDTH 14.1 % (11.6-14.8)
[2018-08-12 11:20] LABS: ANION GAP 7 mmol/L (5-15); BLOOD UREA NITROGEN 26 mg/dL (7-18); CARBON DIOXIDE 31 MMOL/L (21-32); CHLORIDE 99 MMOL/L (98-107); CREATININE 1.3 MG/DL (0.55-1.30); SODIUM 137 MMOL/L (136-145)
[2018-08-12 11:24] LABS: ALANINE AMINOTRANSFERASE 17 U/L (12-78); ALBUMIN 4.7 G/DL (3.4-5.0); ALBUMIN/GLOBULIN RATIO 1.1 (1.0-2.7); ALKALINE PHOSPHATASE 95 U/L (46-116); ASPARTATE AMINO TRANSFERASE 18 U/L (15-37); BILIRUBIN,TOTAL 0.6 MG/DL (0.2-1.0); CALCIUM 15.4 MG/DL (8.5-10.1)
[2018-08-12 11:30] VITALS: BP 132/100
[2018-08-12 12:59] VITALS: BP 149/112
--- NOTE | 2018-08-12 12:59 | NUR ---
ED Nurse Note: pt went to ct with tech.
--- NOTE | 2018-08-12 13:10 | NUR ---
ED Nurse Note: pt went back from ct with tech
--- NOTE | 2018-08-12 14:00 | NUR ---
ED Nurse Note: report given to Martha harrell
--- NOTE | 2018-08-12 14:05 | NUR ---
ED Nurse Note: pt was transfered to tele floor with all belongings endorsed to chriss harrell,
--- NOTE | 2018-08-12 15:01 | Diagnostic Imaging Report ---
Indication: Abdominal pain Technique: Continuous helical transaxial imaging of the abdomen and pelvis was obtained from the lung bases to the pubic symphysis during intravenous contrast administration. Coronal 2-D reformats were also obtained. Study obtained in a Siemens sensation [address] Automatic Exposure Control was utilized. Total Dose length Product (DLP): 947.[address] Dose Index Volume (CTDIvol): 17.73 mGy Comparison: 06/03/2014, 01/15/2017 Findings: Lung bases are essentially clear. There are calcifications throughout the liver and spleen. There are multiple hypodensities within the liver some cystic and some too small to characterize. Aorta is calcified. Right renal cyst is unchanged. A noncontrast study from 01/15/2017 showed nonobstructive stone in the left kidney. This is not possible to evaluate on the current study given the administration of intravenous contrast. No hydronephrosis seen. Excreted contrast material demonstrated within the kidneys the appendix is absent. Bowel gas pattern is nonobstructive. There is no ascites. Uterus is absent. The gallbladder and pancreas, both adrenal glands appear unremarkable. There is a moderate disc disease at L4-5 and L5-S1. Disc herniations may be present. These were seen on prior studies and appear grossly similar but are better evaluated on MRI. Correlate clinically. Impression: No acute findings in the abdomen or pelvis identified. Apparent appendectomy. Atherosclerotic disease. Renal cysts. Nonobstructive stones feces demonstrated in both kidneys obscured by contrast material in the current exam. Multiple liver hypodensities. Some are cystic. Some are too small to characterize. Atherosclerotic vascular disease Apparent disc herniations at L4-5 and L5-S1. These are seen on prior studies. Correlate clinically. The CT scanner at [facility] is accredited by the [employer] and the scans are performed using dose optimization techniques as appropriate to a performed exam including Automatic Exposure control.
--- NOTE | 2018-08-12 15:37 | NUR ---
NURSE NOTES: Patient arrived to unit at 1500. Patient is alert and oriented x4. Patient reports pain 8/10. Patient oriented to room. Report received from SUSI Gould. Belongings reviewed and accounted for. Monitor placed on patient. Side rails upx2, bed is locked, in lowest position, and call light is within reach. Will continue to monitor.
[2018-08-12] MEDS ORDERED: Pamidronate Disodium Inj 30 MG in Sodium Chloride 550 ML IVPB ONE (17:00)
[2018-08-12] MEDS: Enoxaparin 30mg Inj SUBQ SCH (18:05)
[2018-08-12] MEDS: Morphine Sulfate 2mg/ml Inj(IV/IM USE ONLY) IVP PRN (18:07)
--- NOTE | 2018-08-12 19:15 | Consultation ---
DATE OF CONSULTATION: 08/12/2018 CONSULTING PHYSICIAN: Keagan Mike M.D. REFERRING PHYSICIAN: Renan Dunbar M.D. REASON FOR CONSULTATION: 1. Acute kidney injury. 2. Hypercalcemia. HISTORY OF PRESENT ILLNESS: The patient is a pleasant 68-year-old female presenting through the emergency room for further evaluation and care of lower abdominal pain. The patient says that she has been having abdominal bilateral quadrant pains back and forth along with 4-year history of chronic back pain for which she was told that she had degenerative disc disease. The patient has been on Flexeril and Otisco over the last several years. Over the last little while, the patient has progressively gotten worse with her abdominal pain and so she presented to emergency room for further evaluation and care where it was noted the patient had a calcium of 15.4 and a creatinine 1.3. The patient does take hydrochlorothiazide. She denies taking larger volumes of vitamin D, drinking milk or calcium supplementation. ALLERGIES: Amoxicillin and penicillin. PAST MEDICAL HISTORY: 1. Chronic back pain. 2. Hypertension. 3. Degenerative joint disease of lower back. PAST SURGICAL HISTORY: Noncontributory. FAMILY HISTORY: Positive for hypertension. REVIEW OF SYSTEMS: NEUROLOGIC: The patient denies headache, change in vision, syncope, or presyncopal episodes. CARDIOVASCULAR: No current chest pain, palpitations, or angina. PULMONARY: No difficulty breathing, productive cough, or sputum. GASTROINTESTINAL/GENITOURINARY: The patient is having diffuse abdominal pain. No nausea, vomiting, or diarrhea. ENDOCRINOLOGIC: No night sweats, fevers, or chills. MUSCULOSKELETAL: The patient is complaining of low back pain. PHYSICAL EXAMINATION: VITAL SIGNS: Blood pressure 149/112, respiratory rate 16, pulse 84, and temperature 98. 100% oxygen saturation on room air. GENERAL: The patient is awake and alert, in mild distress. HEENT: Extraocular muscles intact. No lymphadenopathy noted. Oropharyngeal mucosa clear and dry. CARDIOVASCULAR: S1 and S2. No rubs or gallops. PULMONARY: Clear to auscultation bilaterally. No rales or rhonchi. ABDOMEN: Nondistended and nontender. EXTREMITIES: No edema. LABORATORY DATA: Labs dated 08/12/2018, sodium 137, potassium 4, creatinine 1.3. Calcium 15.4. Albumin 4.7. White cell count 7, hemoglobin 15.6, and platelet count 266. ASSESSMENT AND PLAN: 1. Hypercalcemia. At this time, multiple etiology is possible. The patient could have metastatic myeloma to the back explaining her last several years of chronic progressive worsening back pain. At this time, serum and urine electrophoresis have been ordered to evaluate for possible monoclonal gammopathy. We will continue aggressive hydration to treat her hypercalcemia along with a dose of pamidronate. Zometa is not available at this hospital. In addition, we will discontinue her hydrochlorothiazide, which can be associated with hypercalcemia. 2. Acute kidney injury. Creatinine 1.3, secondary to volume depletion and hypercalcemia. We will continue aggressive hydration with p.r.n. Lasix for volume management. 3. Abdominal pain. It could be secondary to hypercalcemia. At this time, we will aggressively treat hypercalcemia and defer further management to primary care physician. 4. Chronic back pain. The patient may benefit from a skeletal total-body x-ray to review for any lytic lesions associated with myeloma. Keagan Mike MD DR: STEPHANIE JOB#: [id number] CC:
--- NOTE | 2018-08-12 19:34 | NUR ---
HAND-OFF: Report given to SUSI Gomez.
--- NOTE | 2018-08-12 19:35 | NUR ---
NURSE NOTES: Received pt from SUSI Thomas. Pt is awake and resting in bed. Pt refuses pain currently. IV site intact and patent. Call light within reach, bed in lowest position. Will continue with plan of care.
[2018-08-12 20:00] VITALS: BP_SYST 113; BP_SYST 125; BP_DIAS 70; BP_DIAS 92
[2018-08-12] MEDS ORDERED: Zolpidem 5mg tab ORAL PRN (21:00)
[2018-08-13] VITALS: BP 108/83
[2018-08-13 04:00] VITALS: BP 115/63
[2018-08-13] MEDS: Morphine Sulfate 2mg/ml Inj(IV/IM USE ONLY) IVP PRN ×2 (06:07→12:41)
[2018-08-13 06:32] LABS: BASOPHILS % (AUTO) 1.4 % (0.0-2.0); HEMATOCRIT 37.5 % (37.0-47.0); HEMOGLOBIN 12.7 G/DL (12.0-16.0); MEAN CORPUSCULAR VOLUME 89 FL (80-99); MONOCYTES % (AUTO) 10.5 % (1.0-10.0); NEUTROPHILS % (AUTO) 37.1 % (45.0-75.0); PLATELET COUNT 194 K/UL (150-450); RED BLOOD COUNT 4.21 M/UL (4.20-5.40); RED CELL DISTRIBUTION WIDTH 13.5 % (11.6-14.8); WHITE BLOOD COUNT 6.1 K/UL (4.8-10.8)
[2018-08-13 06:41] LABS: ANION GAP 4 mmol/L (5-15); BLOOD UREA NITROGEN 21 mg/dL (7-18); CALCIUM 12.8 MG/DL (8.5-10.1); CARBON DIOXIDE 30 MMOL/L (21-32); CHLORIDE 105 MMOL/L (98-107); CREATININE 1.2 MG/DL (0.55-1.30); POTASSIUM 3.9 MMOL/L (3.5-5.1); SODIUM 139 MMOL/L (136-145)
--- NOTE | 2018-08-13 07:22 | NUR ---
HAND-OFF: Report given to SUSI Ferraro.
--- NOTE | 2018-08-13 07:51 | Nephrology Progress Note ---
Assessment/Plan Assessment/Plan: A/P 1) Hypercalcemia- ? etiology. Could be from HCTZ or myeloma - HCTZ stopped. SPEP/UPEP/PTH and Vit D levels ordered - s/p pamidronate and will continue IVFs - Calcium level has decreased appropriately 2) SUMIT- from hypercalcemia and volume depletion - continue IVFs Subjective Date patient seen: August 13, 2018 Time patient seen: 07:49 ROS Limited/Unobtainable: No Allergies: Coded Allergies: AMOXICILLIN (Verified Allergy, Severe, HIVES,ITCHING, 06/04/08) PENICILLINS (Unverified Allergy, Unknown, 04/30/14) Subjective Patient says back pain and abdominal pain improved overnite Objective Last 24 Hour Vital Signs Date Time Temp Pulse Resp B/P (MAP) Pulse Ox O2 Delivery O2 Flow Rate FiO2 08/13/18 04:00 98.4 68 20 115/63 (80) 97 08/13/18 04:00 68 08/13/18 00:00 98.4 81 20 108/83 (91) 95 08/13/18 00:00 81 08/12/18 21:00 Room Air 08/12/18 20:00 97.5 80 20 125/92 (103) 97 08/12/18 20:00 80 08/12/18 16:16 87 136/94 08/12/18 16:00 87 08/12/18 15:53 Room Air 08/12/18 14:05 98.0 84 16 149/112 100 Room Air 08/12/18 12:59 98.0 84 16 149/112 100 Room Air 08/12/18 11:30 98.0 90 18 132/100 98 Room Air 08/12/18 10:58 98.0 08/12/18 09:46 97.9 98 20 125/93 98 Room Air 08/12/18 09:46 98 16 Room Air 08/12/18 09:28 97.9 107 20 125/93 (104) 98 Room Air Intake and Output 08/12/18 08/13/18 19:00 07:00 Intake Total 1940 ml 250 ml Balance 1940 ml 250 ml Intake Oral 440 ml 250 ml IV Total 1500 ml # Voids 2 Laboratory Tests 08/12/18 10:05: White Blood Count 7.0, Red Blood Count 5.20, Hemoglobin 15.6, Hematocrit 46.6, Mean Corpuscular Volume 90, Mean Corpuscular Hemoglobin 30.1, Mean Corpuscular Hemoglobin Concent 33.6, Red Cell Distribution Width 14.1, Platelet Count 266, Mean Platelet Volume 11.9H, Neutrophils (%) (Auto) 53.6, Lymphocytes (%) (Auto) 35.3, Monocytes (%) (Auto) 8.3, Eosinophils (%) (Auto) 0.9, Basophils (%) (Auto ) 1.8, Prothrombin Time 10.6, Prothromb Time International Ratio 1.0, Activated Partial Thromboplast Time 33, Sodium Level 137, Potassium Level 4.0, Chloride Level 99, Carbon Dioxide Level 31, Anion Gap 7, Blood Urea Nitrogen 26H, Creatinine 1.3, Estimat Glomerular Filtration Rate 49.2, Glucose Level 104, Calcium Level 15.4*H, Total Bilirubin 0.6, Aspartate Amino Transf (AST/SGOT) 18 , Alanine Aminotransferase (ALT/SGPT) 17, Alkaline Phosphatase 95, Total Protein 9.0H, Albumin 4.7, Globulin 4.3, Albumin/Globulin Ratio 1.1, Lipase 280 08/12/18 10:20: Urine Color Pale yellow, Urine Appearance Clear, Urine pH 5, Urine Specific Crosby 1.020, Urine Protein 3+H, Urine Glucose (UA) Negative, Urine Ketones 1+H , Urine Blood 2+H, Urine Nitrite Negative, Urine Bilirubin Negative, Urine Urobilinogen Normal, Urine Leukocyte Esterase 1+H, Urine RBC 2-4H, Urine WBC 2-4 , Urine Squamous Epithelial Cells Few, Urine Bacteria Few 08/12/18 15:45: Albumin/Globulin Ratio [Pending], Calcium (Send out) [Pending], Total Protein ( PEP) [Pending], Albumin (PEP) [Pending], Globulin (PEP) [Pending], Alpha-1- Globulins [Pending], Ceflt-1-Vftgnkoqz [Pending], Beta Globulins [Pending], Beta Gamma Globulin [Pending], PEP Abnormal Protein Bands [Pending], Protein Electrophoresis Interpret [Pending], Vitamin D 25-Hydroxy [Pending], 25-Hydroxy Vitamin D2 [Pending], 25-Hydroxy Vitamin D3 [Pending], Parathyroid Hormone ( Intact) [Pending] 08/12/18 16:20: Urine Total Protein [Pending], Urine Albumin (%) [Pending], Urine Alpha-1- Globulins (%) [Pending], Urine Szvvv-7-Whfalnvmx (%) [Pending], Urine Beta- Globulin (%) [Pending], Urine Gamma Globulin (%) [Pending], Ur Protein Electrophoresis M-Ayan [Pending], Urine Protein Electrophoresis Intrp [Pending] 08/13/18 06:05: White Blood Count 6.1, Red Blood Count 4.21, Hemoglobin 12.7, Hematocrit 37.5, Mean Corpuscular Volume 89, Mean Corpuscular Hemoglobin 30.3, Mean Corpuscular Hemoglobin Concent 34.0, Red Cell Distribution Width 13.5, Platelet Count 194, Mean Platelet Volume 11.0H, Neutrophils (%) (Auto) 37.1L, Lymphocytes (%) (Auto ) 49.0H, Monocytes (%) (Auto) 10.5H, Eosinophils (%) (Auto) 2.0, Basophils (%) ( Auto) 1.4, Sodium Level 139, Potassium Level 3.9, Chloride Level 105, Carbon Dioxide Level 30, Anion Gap 4L, Blood Urea Nitrogen 21H, Creatinine 1.2, Estimat Glomerular Filtration Rate 53.9, Glucose Level 100, Calcium Level 12.8H Height (Feet): 5 Height (Inches): 8.00 Weight (Pounds): 181 General Appearance: no apparent distress, alert EENT: normal ENT inspection Neck: normal alignment, supple Cardiovascular: normal rate, regular rhythm Respiratory/Chest: lungs clear, normal breath sounds Abdomen: non tender, soft Edema: no edema noted Arm (L), no edema noted Arm (R), no edema noted Leg (L), no edema noted Leg (R), no edema noted Pedal (L), no edema noted Pedal (R), no edema noted Generalized Keagan Mike MD August 13, 2018 07:51
--- NOTE | 2018-08-13 07:58 | NUR ---
NURSE NOTES: Report received from SUSI Flores. Pt sitting at edge of bed, talkative, pleasant, calm, bed in lowest position, call light within reach, assisted pt to bathroom, pt is ambulatory with steady gait, IV fluids running according to order, no apparent distress noted, no complaints of pain at this time. Discussed plan of care.
[2018-08-13 08:00] VITALS: BP 135/91
[2018-08-13] MEDS: Aspirin Baby 81mg ORAL SCH (09:10)
[2018-08-13] MEDS: Miralax 17gm pkt ORAL PRN (09:11)
[2018-08-13 12:00] VITALS: BP 118/76
--- NOTE | 2018-08-13 14:28 | NUR ---
NURSE NOTES: Pt states morphine is not effective at treating pain medication. Notified Dr. Mike, he stated to contact Dr. Dunbar Addendum: 08/13/18 at 1442 by JUSTUS PEÑA RN NURSE NOTES: Left message for Dr. Dunbar
--- NOTE | 2018-08-13 15:36 | NUR ---
CASE MANAGEMENT:REVIEW 68 YR OLD FEMALE PRESENTED TO ER CC: ABDOMINAL AND BACK PAIN X3 DAYS SI: ABDOMINAL PAIN. HYPERCALCEMIA 97.9 107 20 125/93 98% ON RA CA+15.4 PTH INTACT+234 IS: IV ZOFRAN IV PEPCID 500CC NS BOLUS 1L NS BOLUS IV TORADOL CT ABD : TO TELEMETRY INTERQUAL CRITERIA MET
--- NOTE | 2018-08-13 15:56 | NUR ---
*-* INSURANCE *-* ALL CLINICALS AND REVIEWS HAVE BEEN FAXED TO: [facility]: NAYELY P:[phone] F;[phone]
[2018-08-13 16:00] VITALS: BP 100/61
[2018-08-13] MEDS: HYDROcodone/Acetamin 10/325 tab ORAL PRN (16:10)
--- NOTE | 2018-08-13 16:30 | History and Physical Report ---
DATE OF ADMISSION: 08/12/2018 HISTORY OF PRESENT ILLNESS: This is a very presence 68-year-old female, who came to the hospital for lower abdominal pain. The patient reports abdominal pain bilaterally in the lower quadrants. She also reports low back pain. The patient reports she has degenerative disk disease. In the past, she has been on Flexeril and [place]. The patient was worked up in the ER and admitted to the hospital after she was found to have a calcium of 15, creatinine of 1.2, and albumin of 4.5. The patient takes hydrochlorothiazide, but denies taking any supplementation of vitamin D of milk. ALLERGIES: Amoxil and penicillin. PAST MEDICAL HISTORY: Chronic low back pain, hypertension, DJD. SURGERIES: None. REVIEW OF SYSTEMS: The patient denies any headaches, hematemesis, melena, or hematochezia. PHYSICAL EXAMINATION: VITAL SIGNS: Blood pressure 140/90, heart rate 72, respirations 18. GENERAL: Revealed a 68-year-old female. HEENT: Unremarkable. LUNGS: Clear breath sounds. ABDOMEN: Soft. NEUROLOGIC: Nonfocal. LABORATORY DATA: Lab testing as discussed above. IMPRESSION: 1. 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 2. Need to rule out pathology of hypercalcemia. 3. SUMIT. 4. Abdominal pain. DISCUSSION: I agree with admission and care. Bone survey has been ordered as well as elective serum electrophoresis. We will provide pain medications. Consider bisphosphonate therapy. DVT prophylaxis to be initiated. 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 Renan Dunbar M.D. DR: RICHI JOB#: [id number] CC:
--- NOTE | 2018-08-13 16:32 | Cardiology Report ---
APPROVED REPORT EKG Measurement Heart [id number] Normal sinus rhythm Nonspecific ST abnormality Abnormal ECG
[2018-08-13] MEDS: Enoxaparin 30mg Inj SUBQ SCH (17:03)
--- NOTE | 2018-08-13 19:30 | NUR ---
NURSE NOTES: Report received from Gagan Encarnacion RN. Pt is ambulating in the hallways with at side. Pt is noted to be independently ambulatory with steady gait. Pt is awake, alert, and oriented x4. Pt is on room air and breathing is even and unlabored. No acute distress noted. IV site is R hand #22g and is asymptomatic, patent, and intact and running IV fluids at rx rate. Bed is in lowest position with brake engaged, side rails up x2. Call light and side table placed within reach of bed. Pt c/o constipation, miralax PRN already given today. Will continue to monitor.
--- NOTE | 2018-08-13 19:32 | NUR ---
HAND-OFF: Report given to SUSI Rosenberg.
[2018-08-13 20:00] VITALS: BP 106/71
--- NOTE | 2018-08-13 20:34 | NUR ---
NURSE NOTES: Pt is requesting Milk of Magnesia stating that this is what she takes at home for constipation. Message left for MD Dunbar requesting an order for MOM. Awaiting call back for further instructions. Will continue to monitor.
--- NOTE | 2018-08-13 22:15 | NUR ---
NURSE NOTES: 2nd message left for MD Dunbar to request order for MOM.
--- NOTE | 2018-08-13 22:30 | NUR ---
NURSE NOTES: MD Mike contacted regarding order for MOM. Per , okchris to place order for Milk of Magnesia 30mL daily PRN for constipation. Orders noted and carried out. Will administer to patient PRN and continue to monitor.
[2018-08-13] MEDS: Milk of Magnesia 30ml Ud ORAL PRN (22:45)
[2018-08-13] MEDS: Cyclobenzaprine 10mg Tab ORAL SCH (22:45)
[2018-08-14] VITALS: BP 114/94
[2018-08-14] MEDS: HYDROcodone/Acetamin 10/325 tab ORAL PRN ×2 (01:34→20:23)
[2018-08-14 04:00] VITALS: BP 133/77
--- NOTE | 2018-08-14 07:23 | NUR ---
HAND-OFF: Report given to Faye Birmingham RN. Pt is resting in bed in stable condition. No acute distress noted. Endorsed plan of care.
--- NOTE | 2018-08-14 07:45 | NUR ---
NURSE NOTES: Report received from Verito Sosa RN. Pt is lying comfortably in semi-fowlers with no signs of distress. A+Ox4, denies pain and SOB, but complains of constipation. Respirations are even and unlabored on room air. IV site is patent and running fluids at prescribed rate. Bed is at lowest position, brakes engaged, siderails x3, bed alarm on, and call light within reach. Pt is in stable condition; will continue to monitor.
[2018-08-14 08:00] VITALS: BP 133/84
--- NOTE | 2018-08-14 08:52 | Consultation ---
History of Present Illness General Date patient seen: August 14, 2018 Time patient seen: 08:00 - am Chief Complaint: Neck and back pain Referring physician: Bossman Reason for Consultation: Pain Management Present Illness HPI Patient was admitted under the care of Dr. Keita due to abdominal and back pain. She is a known patient from Dr. Wood office, and reports that the back and neck pain has not changed. Was started on Morphine 1mg IV Q4H PRN, Charlotte 10/325mg PO 1 tab Q6H PRN. is at her bedside. Allergies: Coded Allergies: AMOXICILLIN (Verified Allergy, Severe, HIVES,ITCHING, 06/04/08) PENICILLINS (Unverified Allergy, Unknown, 04/30/14) Medication History Scheduled Cephalexin* (Keflex*), 500 MG ORAL TID Docusate Sodium* (Colace*), 100 MG ORAL TWICE A DAY Lidocaine (Lidocaine), 700 MG TP DAILY Methocarbamol* (Robaxin*), 500 MG PO BID Nitrofurantoin Macrocrystal (Macrodantin*), 50 MG ORAL FOUR TIMES A DAY Valsartan/Hydrochlorothiazide 320-25MG (Diovan Hct 320-25 Mg Tablet), 1 TAB ORAL DAILY, (Reported) Scheduled PRN Hydrocodone Bit/Acetaminophen 10-325* (Charlotte 10-325*), 1 TAB ORAL Q6H PRN for For Pain, (Reported) Ibuprofen* (Motrin*), 600 MG ORAL Q6H PRN for For Pain Patient History Healthcare decision maker Resuscitation status Full Code Advanced Directive on File Past Medical/Surgical History Past Medical/Surgical History: (1) Chronic low back pain with sciatica Review of Systems Constitutional: Reports: no symptoms Eye: Reports: no symptoms ENT: Reports: no symptoms Respiratory: Reports: no symptoms Cardiovascular: Reports: no symptoms Gastrointestinal: Reports: abdominal pain Genitourinary: Reports: no symptoms Musculoskeletal: Reports: back pain, muscle pain Skin: Reports: no symptoms Psychiatric: Reports: no symptoms Neurological: Reports: no symptoms Endocrine: Reports: no symptoms Hematologic/Lymphatic: Reports: no symptoms Physical Exam General Appearance: no apparent distress, alert HEENT: PERRL, EOMI Neck: non-tender, pain on motion Respiratory/Chest: lungs clear, normal breath sounds Abdomen: tender Extremities: non-tender, normal inspection Neurologic: alert, oriented x 3 Last 24 Hour Vital Signs Date Time Temp Pulse Resp B/P (MAP) Pulse Ox O2 Delivery O2 Flow Rate FiO2 08/14/18 04:00 98.2 72 20 133/77 (95) 98 08/14/18 04:00 73 08/14/18 00:00 74 08/14/18 00:00 98.0 75 20 114/94 (101) 97 08/13/18 21:00 Room Air 08/13/18 20:00 81 08/13/18 20:00 98.6 80 20 106/71 (83) 95 08/13/18 16:40 97.2 08/13/18 16:24 73 08/13/18 16:00 98.0 80 21 100/61 (74) 98 08/13/18 13:22 97.2 08/13/18 12:00 98.3 76 21 118/76 (90) 97 08/13/18 11:32 75 08/13/18 09:11 82 135/91 08/13/18 09:00 Room Air Intake and Output 08/13/18 08/14/18 19:00 07:00 Intake Total 1050 ml Balance 1050 ml IV Total 1050 ml # Voids 3 2 Height (Feet): 5 Height (Inches): 8.00 Weight (Pounds): 181 Medications Current Medications Medications (Trade) Dose Ordered Sig/Janes Route PRN Reason Start Time Stop Time Status Last Admin Dose Admin Acetaminophen/ Hydrocodone Bitart (Charlotte 10/325) 1 tab Q6H PRN ORAL For Pain 08/13/18 15:45 08/20/18 15:44 08/14/18 01:34 Amlodipine Besylate (Norvasc) 10 mg DAILY ORAL 08/12/18 15:30 09/11/18 15:29 08/13/18 09:11 Aspirin (ASA) 81 mg DAILY ORAL 08/13/18 09:00 09/12/18 08:59 08/13/18 09:10 Barium Sulfate (Readi-Cat 2) 450 ml NOW PRN ORAL Radiology Procedure 08/12/18 10:15 08/14/18 10:12 Cyclobenzaprine HCl (Flexeril) 10 mg BEDTIME ORAL 08/13/18 21:00 09/12/18 20:59 08/13/18 22:45 Dextrose (Dextrose 50%) 25 ml Q30M PRN IV Hypoglycemia 08/12/18 15:15 09/11/18 15:14 Dextrose (Dextrose 50%) 50 ml Q30M PRN IV Hypoglycemia 08/12/18 15:15 09/11/18 15:14 Enoxaparin Sodium (Lovenox) 30 mg Q24H SUBQ 08/12/18 17:00 09/11/18 16:59 08/13/18 17:03 Famotidine (Pepcid) 40 mg DAILY ORAL 08/13/18 09:00 09/12/18 08:59 08/13/18 09:10 Iopamidol (Isovue-300 100ml) 100 ml NOW PRN INJ Radiology Procedure 08/12/18 10:15 Magnesium Hydroxide (Mom) 30 ml DAILYPRN PRN ORAL Constipation 08/13/18 22:30 09/12/18 22:29 08/13/18 22:45 Morphine Sulfate (Morphine Sulfate) 1 mg Q4H PRN IVP PAIN 4-10 08/12/18 15:15 08/19/18 15:14 08/13/18 12:41 Ondansetron HCl (Zofran) 4 mg Q6H PRN IVP Nausea & Vomiting 08/12/18 15:15 09/11/18 15:14 Polyethylene Glycol (Miralax) 17 gm DAILYPRN PRN ORAL Constipation 08/13/18 09:15 09/12/18 09:14 08/13/18 09:11 Sodium Chloride 1,000 ml @ 150 mls/hr Q6H40M IV 08/12/18 15:30 09/11/18 15:29 08/14/18 00:23 Zolpidem Tartrate (Ambien) 5 mg HSPRN PRN ORAL Insomnia 08/12/18 21:00 08/19/18 20:59 08/13/18 00:12 Objective Narrative 03/20/2017 Lumbar MRI showing L1-L2: 2mm, L2-L3: 2mm, L3-L4: 2mm, L4-L5: 6mm, L5- S1: 5-6mm disc herniation, spondylosis, degenerative disc disease, foraminal stenosis 03/20/2017 Cervical MRI showing C2-C3: 1-2mm, C3-C4: 2mm, C4-C5: 1-2mm, C5-C6: 3mm , C6-C7: 2-3mm, C7-T1: 1-2mm disc herniation, spondylosis, degenerative disc disease, spondylolisthesis, foraminal stenosis Assessment/Plan Assessment/Plan: (1) Lumbar Herniated disc (2) Lumbar Radiculopathy (3) Cervical Herniated disc (4) Cervical Radiculopathy Pt will be continued on Charlotte and Morphine D/w Dr. Rojas and he concurred. Pawan Arteaga August 14, 2018 08:52
--- NOTE | 2018-08-14 09:14 | Nephrology Progress Note ---
Assessment/Plan Assessment/Plan: A/P 1) Hypercalcemia- ? etiology. Could be from HCTZ or myeloma - HCTZ stopped. SPEP/UPEP/PTH and Vit D levels pending - s/p pamidronate and will decrease IVFs. - AM labs pending - may benefit from a skeletal survey 2) SUMIT- from hypercalcemia and volume depletion - continue IVFs Subjective Date patient seen: August 14, 2018 Time patient seen: 09:12 ROS Limited/Unobtainable: No Allergies: Coded Allergies: AMOXICILLIN (Verified Allergy, Severe, HIVES,ITCHING, 06/04/08) PENICILLINS (Unverified Allergy, Unknown, 04/30/14) Subjective Patient now in no distress Objective Last 24 Hour Vital Signs Date Time Temp Pulse Resp B/P (MAP) Pulse Ox O2 Delivery O2 Flow Rate FiO2 08/14/18 08:00 99.5 80 18 133/84 (100) 96 08/14/18 04:00 98.2 72 20 133/77 (95) 98 08/14/18 04:00 73 08/14/18 00:00 74 08/14/18 00:00 98.0 75 20 114/94 (101) 97 08/13/18 21:00 Room Air 08/13/18 20:00 81 08/13/18 20:00 98.6 80 20 106/71 (83) 95 08/13/18 16:40 97.2 08/13/18 16:24 73 08/13/18 16:00 98.0 80 21 100/61 (74) 98 08/13/18 13:22 97.2 08/13/18 12:00 98.3 76 21 118/76 (90) 97 08/13/18 11:32 75 Intake and Output 08/13/18 08/14/18 19:00 07:00 Intake Total 1050 ml Balance 1050 ml IV Total 1050 ml # Voids 3 2 Height (Feet): 5 Height (Inches): 8.00 Weight (Pounds): 181 General Appearance: no apparent distress EENT: normal ENT inspection Neck: normal alignment, supple Cardiovascular: normal rate, regular rhythm Respiratory/Chest: lungs clear, normal breath sounds Abdomen: non tender, soft Edema: no edema noted Arm (L), no edema noted Arm (R), no edema noted Leg (L), no edema noted Leg (R), no edema noted Pedal (L), no edema noted Pedal (R), no edema noted Generalized Keagan Mike MD August 14, 2018 09:14
[2018-08-14] MEDS: Aspirin Baby 81mg ORAL SCH (09:21)
[2018-08-14] MEDS: Milk of Magnesia 30ml Ud ORAL PRN (09:21)
[2018-08-14] MEDS: Miralax 17gm pkt ORAL PRN (09:21)
[2018-08-14] MEDS: Lactulose 20gm/30ml UDC ORAL SCH ×4 (09:36→20:24)
[2018-08-14] MEDS: Naloxegol Oxalate 25mg tab ORAL SCH (09:36)
--- NOTE | 2018-08-14 09:41 | Pulmonology Progress Note ---
Assessment/Plan Assessment/Plan IMPRESSION: 1. Hypercalcemia, has high PTH; suspect primary hyperparathyroidism 2. Chronic LBP 3. SUMIT. DISCUSSION: Continue pain medications. S/P bisphosphonate therapy. DVT prophylaxis to be initiated. Discussed with renal Agree with Sestamibi scan Subjective Interval Events: None new; has high PTH Constitutional: Reports: no symptoms HEENT: Repors: no symptoms Respiratory: Reports: no symptoms Cardiovascular: Reports: no symptoms Gastrointestinal/Abdominal: Reports: no symptoms Genitourinary: Reports: no symptoms Allergies: Coded Allergies: AMOXICILLIN (Verified Allergy, Severe, HIVES,ITCHING, 06/04/08) PENICILLINS (Unverified Allergy, Unknown, 04/30/14) Objective Last 24 Hour Vital Signs Date Time Temp Pulse Resp B/P (MAP) Pulse Ox O2 Delivery O2 Flow Rate FiO2 08/14/18 09:22 80 133/84 08/14/18 08:00 99.5 80 18 133/84 (100) 96 08/14/18 04:00 98.2 72 20 133/77 (95) 98 08/14/18 04:00 73 08/14/18 00:00 74 08/14/18 00:00 98.0 75 20 114/94 (101) 97 08/13/18 21:00 Room Air 08/13/18 20:00 81 08/13/18 20:00 98.6 80 20 106/71 (83) 95 08/13/18 16:40 97.2 08/13/18 16:24 73 08/13/18 16:00 98.0 80 21 100/61 (74) 98 08/13/18 13:22 97.2 08/13/18 12:00 98.3 76 21 118/76 (90) 97 08/13/18 11:32 75 Intake and Output 08/13/18 08/14/18 19:00 07:00 Intake Total 1050 ml Balance 1050 ml IV Total 1050 ml # Voids 3 2 General Appearance: no acute distress HEENT: normocephalic Respiratory/Chest: chest wall non-tender, lungs clear Cardiovascular: normal peripheral pulses, normal rate Abdomen: normal bowel sounds Current Medications Medications (Trade) Dose Ordered Sig/Janes Route PRN Reason Start Time Stop Time Status Last Admin Dose Admin Acetaminophen/ Hydrocodone Bitart ([place] 10/325) 1 tab Q6H PRN ORAL For Pain 08/13/18 15:45 08/20/18 15:44 08/14/18 01:34 Amlodipine Besylate (Norvasc) 10 mg DAILY ORAL 08/12/18 15:30 09/11/18 15:29 08/14/18 09:22 Aspirin (ASA) 81 mg DAILY ORAL 08/13/18 09:00 09/12/18 08:59 08/14/18 09:21 Barium Sulfate (Readi-Cat 2) 450 ml NOW PRN ORAL Radiology Procedure 08/12/18 10:15 08/14/18 10:12 Cyclobenzaprine HCl (Flexeril) 10 mg BEDTIME ORAL 08/13/18 21:00 09/12/18 20:59 08/13/18 22:45 Dextrose (Dextrose 50%) 25 ml Q30M PRN IV Hypoglycemia 08/12/18 15:15 09/11/18 15:14 Dextrose (Dextrose 50%) 50 ml Q30M PRN IV Hypoglycemia 08/12/18 15:15 09/11/18 15:14 Enoxaparin Sodium (Lovenox) 30 mg Q24H SUBQ 08/12/18 17:00 09/11/18 16:59 08/13/18 17:03 Famotidine (Pepcid) 40 mg DAILY ORAL 08/13/18 09:00 09/12/18 08:59 08/14/18 09:21 Iopamidol (Isovue-300 100ml) 100 ml NOW PRN INJ Radiology Procedure 08/12/18 10:15 Lactulose (Cephulac) 30 gm FOUR TIMES A DAY ORAL 08/14/18 09:30 09/13/18 09:29 08/14/18 09:36 Magnesium Hydroxide (Mom) 30 ml DAILYPRN PRN ORAL Constipation 08/13/18 22:30 09/12/18 22:29 08/14/18 09:21 Morphine Sulfate (Morphine Sulfate) 1 mg Q4H PRN IVP PAIN 4-10 08/12/18 15:15 08/19/18 15:14 08/13/18 12:41 Naloxegol (Movantik) 25 mg DAILY ORAL 08/14/18 10:00 09/13/18 09:59 08/14/18 09:36 Ondansetron HCl (Zofran) 4 mg Q6H PRN IVP Nausea & Vomiting 08/12/18 15:15 09/11/18 15:14 Polyethylene Glycol (Miralax) 17 gm DAILYPRN PRN ORAL Constipation 08/13/18 09:15 09/12/18 09:14 08/14/18 09:21 Sodium Chloride 1,000 ml @ 75 mls/hr [id number] IV 08/14/18 09:09 09/13/18 09:08 08/14/18 09:25 Zolpidem Tartrate (Ambien) 5 mg HSPRN PRN ORAL Insomnia 08/12/18 21:00 08/19/18 20:59 08/13/18 00:12 Renan Dunbar MD August 14, 2018 09:40
[2018-08-14 11:41] LABS: ANION GAP 4 mmol/L (5-15); BLOOD UREA NITROGEN 12 mg/dL (7-18); CALCIUM 11.2 MG/DL (8.5-10.1); CARBON DIOXIDE 30 MMOL/L (21-32); CHLORIDE 106 MMOL/L (98-107); POTASSIUM 3.9 MMOL/L (3.5-5.1); SODIUM 140 MMOL/L (136-145)
[2018-08-14 12:00] VITALS: BP 132/84
--- NOTE | 2018-08-14 12:37 | NUR ---
*-* INSURANCE *-* UPDATED HAVE BEEN FAXED TO: [facility]: [place] P:[phone] F;[phone]
--- NOTE | 2018-08-14 15:43 | NUR ---
CASE MANAGEMENT:REVIEW 08/14/18 SI: HYPERCALCEMIA SUSPECT PRIMARY HYPERPARATHYROID 98.8 81 18 132/84 98% ON RA CA+11.2 IS: MOVANTIK PO QD LACTULOSE PO QID IVF@75/HR FLEXERIL PO QD ASA PO QD PEPCID PO QD LOVENOX SQ Q24 NORVASC PO QD : TELEMETRY STATUS PLAN: SESTAMBI SCAN
[2018-08-14 16:00] VITALS: BP 127/89
[2018-08-14] MEDS: Enoxaparin 30mg Inj SUBQ SCH (17:43)
--- NOTE | 2018-08-14 19:21 | NUR ---
HAND-OFF: Report given to SUSI Rosenberg. Pt is in stable condition; plan of care endorsed.
--- NOTE | 2018-08-14 19:21 | NUR ---
NURSE NOTES: Report received from Faye Birmingham RN. Pt is resting in bed in stable condition. Pt is AOx4. Pt is on room air and breathing is even and unlabored, no acute distress noted. IV site is R hand #[id number] and is asymptomatic, patent, and intact and running IV fluids at rx rate. Bed is in lowest position with brake engaged, side rails up x2. Call light and side table placed within reach. Will continue to monitor.
[2018-08-14 20:00] VITALS: BP 143/90
[2018-08-14] MEDS: Cyclobenzaprine 10mg Tab ORAL SCH (22:03)
[2018-08-15] VITALS: BP 146/91
[2018-08-15] MEDS: HYDROcodone/Acetamin 10/325 tab ORAL PRN (03:29)
[2018-08-15 04:00] VITALS: BP 148/91
[2018-08-15 06:44] LABS: ANION GAP 5 mmol/L (5-15); BLOOD UREA NITROGEN 10 mg/dL (7-18); CALCIUM 9.8 MG/DL (8.5-10.1); CARBON DIOXIDE 27 MMOL/L (21-32); CHLORIDE 110 MMOL/L (98-107); POTASSIUM 3.9 MMOL/L (3.5-5.1); SODIUM 142 MMOL/L (136-145)
--- NOTE | 2018-08-15 07:15 | NUR ---
HAND-OFF: Report given to Faye Birmingham RN. Pt is resting in bed in stable condition. No acute distress noted. Endorsed plan of care.
--- NOTE | 2018-08-15 07:22 | NUR ---
NURSE NOTES: Report received from Verito Sosa RN. Pt is lying comfortably in semi-fowlers with no signs of distress. A+Ox4, denies pain and SOB. Respirations are even and unlabored on room air. IV site is patent and running fluids at prescribed rate. Bed is at lowest position, brakes engaged, siderails x3, bed alarm on, and call light within reach. Pt is in stable condition; will continue to monitor. Pt to have NM parathyroid this morning.
[2018-08-15 08:00] VITALS: BP 109/63
[2018-08-15] MEDS: Lactulose 20gm/30ml UDC ORAL SCH (09:16)
[2018-08-15] MEDS: Aspirin Baby 81mg ORAL SCH (09:16)
[2018-08-15 09:17] VITALS: BP 109/63
[2018-08-15] MEDS: Naloxegol Oxalate 25mg tab ORAL SCH (09:17)
--- NOTE | 2018-08-15 09:25 | Pulmonology Progress Note ---
Assessment/Plan Assessment/Plan IMPRESSION: 1. Hypercalcemia, has high PTH; suspect primary hyperparathyroidism 2. Chronic LBP 3. SUMIT. DISCUSSION: Continue pain medications. S/P bisphosphonate therapy. Discussed with renal Agree with Sestamibi scan; to be completed today Dc home later today Subjective Interval Events: Calcium normal; feels well Constitutional: Reports: no symptoms HEENT: Repors: no symptoms Respiratory: Reports: no symptoms Cardiovascular: Reports: no symptoms Genitourinary: Reports: no symptoms Allergies: Coded Allergies: AMOXICILLIN (Verified Allergy, Severe, HIVES,ITCHING, 06/04/08) PENICILLINS (Unverified Allergy, Unknown, 04/30/14) Objective Last 24 Hour Vital Signs Date Time Temp Pulse Resp B/P (MAP) Pulse Ox O2 Delivery O2 Flow Rate FiO2 08/15/18 09:17 83 109/63 08/15/18 08:00 97.5 83 18 109/63 (78) 95 08/15/18 04:00 75 08/15/18 04:00 98.0 81 18 148/91 (110) 98 08/15/18 00:00 98.0 82 18 146/91 (109) 98 08/15/18 00:00 79 08/14/18 21:00 Room Air 08/14/18 20:00 99.3 83 18 143/90 (107) 98 08/14/18 20:00 79 08/14/18 16:00 98.3 80 18 127/89 (102) 100 08/14/18 16:00 87 08/14/18 12:00 80 08/14/18 12:00 98.8 81 18 132/84 (100) 98 Intake and Output 08/14/18 08/15/18 19:00 07:00 Intake Total 1030 ml Balance 1030 ml Intake Oral 1030 ml # Voids 5 2 # Bowel Movements 1 General Appearance: no acute distress HEENT: normocephalic Respiratory/Chest: chest wall non-tender, lungs clear Cardiovascular: normal peripheral pulses Abdomen: normal bowel sounds Laboratory Tests 08/14/18 11:10: Sodium Level 140, Potassium Level 3.9, Chloride Level 106, Carbon Dioxide Level 30, Anion Gap 4L, Blood Urea Nitrogen 12, Creatinine 1.0, Estimat Glomerular Filtration Rate > 60, Glucose Level 116H, Calcium Level 11.2H 08/15/18 05:50: Sodium Level 142, Potassium Level 3.9, Chloride Level 110H, Carbon Dioxide Level 27, Anion Gap 5, Blood Urea Nitrogen 10, Creatinine 1.0, Estimat Glomerular Filtration Rate > 60, Glucose Level 89, Calcium Level 9.8 Current Medications Medications (Trade) Dose Ordered Sig/Janes Route PRN Reason Start Time Stop Time Status Last Admin Dose Admin Acetaminophen/ Hydrocodone Bitart ([place] 10/325) 1 tab Q6H PRN ORAL For Pain 08/13/18 15:45 08/20/18 15:44 08/15/18 03:29 Amlodipine Besylate (Norvasc) 10 mg DAILY ORAL 08/12/18 15:30 09/11/18 15:29 08/15/18 09:17 Aspirin (ASA) 81 mg DAILY ORAL 08/13/18 09:00 09/12/18 08:59 08/15/18 09:16 Cyclobenzaprine HCl (Flexeril) 10 mg BEDTIME ORAL 08/13/18 21:00 09/12/18 20:59 08/14/18 22:03 Dextrose (Dextrose 50%) 25 ml Q30M PRN IV Hypoglycemia 08/12/18 15:15 09/11/18 15:14 Dextrose (Dextrose 50%) 50 ml Q30M PRN IV Hypoglycemia 08/12/18 15:15 09/11/18 15:14 Enoxaparin Sodium (Lovenox) 30 mg Q24H SUBQ 08/12/18 17:00 09/11/18 16:59 08/14/18 17:43 Famotidine (Pepcid) 40 mg DAILY ORAL 08/13/18 09:00 09/12/18 08:59 08/15/18 09:17 Iopamidol (Isovue-300 100ml) 100 ml NOW PRN INJ Radiology Procedure 08/12/18 10:15 Lactulose (Cephulac) 30 gm FOUR TIMES A DAY ORAL 08/14/18 09:30 09/13/18 09:29 08/15/18 09:16 Magnesium Hydroxide (Mom) 30 ml DAILYPRN PRN ORAL Constipation 08/13/18 22:30 09/12/18 22:29 08/14/18 09:21 Morphine Sulfate (Morphine Sulfate) 1 mg Q4H PRN IVP PAIN 4-10 08/12/18 15:15 08/19/18 15:14 08/13/18 12:41 Naloxegol (Movantik) 25 mg DAILY ORAL 08/14/18 10:00 09/13/18 09:59 08/15/18 09:17 Ondansetron HCl (Zofran) 4 mg Q6H PRN IVP Nausea & Vomiting 08/12/18 15:15 09/11/18 15:14 Polyethylene Glycol (Miralax) 17 gm DAILYPRN PRN ORAL Constipation 08/13/18 09:15 09/12/18 09:14 08/14/18 09:21 Sodium Chloride 1,000 ml @ 75 mls/hr [id number] IV 08/14/18 09:09 09/13/18 09:08 08/15/18 09:16 Zolpidem Tartrate (Ambien) 5 mg HSPRN PRN ORAL Insomnia 08/12/18 21:00 08/19/18 20:59 08/13/18 00:12 Renan Dunbar MD August 15, 2018 09:25
[2018-08-15] MEDS ORDERED: NORVASC5 MG ORAL (09:28)
--- NOTE | 2018-08-15 09:59 | Nephrology Progress Note ---
Assessment/Plan Assessment/Plan: A/P 1) Hypercalcemia- ? etiology. HCTZ stopped - SPEP neg, UPEP pending,and Vit D levels pending - s/p pamidronate and will decrease IVFs. - Possible P-HPT as PTH elevated - may benefit from a skeletal survey - NM sestamibi scan ordered. Awaiting results. May crissy parathyroidectomy 2) SUMIT- from hypercalcemia and volume depletion - DC IVFs - resolved Subjective Date patient seen: August 15, 2018 Time patient seen: 09:57 Allergies: Coded Allergies: AMOXICILLIN (Verified Allergy, Severe, HIVES,ITCHING, 06/04/08) PENICILLINS (Unverified Allergy, Unknown, 04/30/14) Subjective Patient now in no distress. No CP or SOB Objective Last 24 Hour Vital Signs Date Time Temp Pulse Resp B/P (MAP) Pulse Ox O2 Delivery O2 Flow Rate FiO2 08/15/18 09:17 83 109/63 08/15/18 08:00 97.5 83 18 109/63 (78) 95 08/15/18 04:00 75 08/15/18 04:00 98.0 81 18 148/91 (110) 98 08/15/18 00:00 98.0 82 18 146/91 (109) 98 08/15/18 00:00 79 08/14/18 21:00 Room Air 08/14/18 20:00 99.3 83 18 143/90 (107) 98 08/14/18 20:00 79 08/14/18 16:00 98.3 80 18 127/89 (102) 100 08/14/18 16:00 87 08/14/18 12:00 80 08/14/18 12:00 98.8 81 18 132/84 (100) 98 Intake and Output 08/14/18 08/15/18 19:00 07:00 Intake Total 1030 ml Balance 1030 ml Intake Oral 1030 ml # Voids 5 2 # Bowel Movements 1 Laboratory Tests 08/14/18 11:10: Sodium Level 140, Potassium Level 3.9, Chloride Level 106, Carbon Dioxide Level 30, Anion Gap 4L, Blood Urea Nitrogen 12, Creatinine 1.0, Estimat Glomerular Filtration Rate > 60, Glucose Level 116H, Calcium Level 11.2H 08/15/18 05:50: Sodium Level 142, Potassium Level 3.9, Chloride Level 110H, Carbon Dioxide Level 27, Anion Gap 5, Blood Urea Nitrogen 10, Creatinine 1.0, Estimat Glomerular Filtration Rate > 60, Glucose Level 89, Calcium Level 9.8 Height (Feet): 5 Height (Inches): 8.00 Weight (Pounds): 181 General Appearance: no apparent distress EENT: normal ENT inspection Neck: normal alignment Cardiovascular: normal rate, regular rhythm Respiratory/Chest: lungs clear, normal breath sounds Abdomen: non tender, soft Edema: no edema noted Arm (L), no edema noted Arm (R), no edema noted Leg (L), no edema noted Leg (R), no edema noted Pedal (L), no edema noted Pedal (R), no edema noted Generalized Keagan Mike MD August 15, 2018 09:59
--- NOTE | 2018-08-15 10:16 | General Progress Note ---
Assessment/Plan Assessment/Plan: (1) Lumbar Herniated disc (2) Lumbar Radiculopathy (3) Cervical Herniated disc (4) Cervical Radiculopathy Pt will be continued on [place] and Morphine D/w Dr. Rojas and he concurred. Subjective Date patient seen: August 15, 2018 Time patient seen: 08:30 - am Constitutional: Reports: no symptoms HEENT: Reports: no symptoms Cardiovascular: Reports: no symptoms Respiratory: Reports: no symptoms Gastrointestinal/Abdominal: Reports: no symptoms Genitourinary: Reports: no symptoms Neurologic/Psychiatric: Reports: no symptoms Endocrine: Reports: no symptoms Hematologic/Lymphatic: Reports: no symptoms Allergies: Coded Allergies: AMOXICILLIN (Verified Allergy, Severe, HIVES,ITCHING, 06/04/08) PENICILLINS (Unverified Allergy, Unknown, 04/30/14) Subjective Patient is comfortable and pain has been tolerated on the [place] using 2 doses in the last 24hrs. Objective Last 24 Hour Vital Signs Date Time Temp Pulse Resp B/P (MAP) Pulse Ox O2 Delivery O2 Flow Rate FiO2 08/15/18 09:17 83 109/63 08/15/18 08:00 97.5 83 18 109/63 (78) 95 08/15/18 04:00 75 08/15/18 04:00 98.0 81 18 148/91 (110) 98 08/15/18 00:00 98.0 82 18 146/91 (109) 98 08/15/18 00:00 79 08/14/18 21:00 Room Air 08/14/18 20:00 99.3 83 18 143/90 (107) 98 08/14/18 20:00 79 08/14/18 16:00 98.3 80 18 127/89 (102) 100 08/14/18 16:00 87 08/14/18 12:00 80 08/14/18 12:00 98.8 81 18 132/84 (100) 98 Intake and Output 08/14/18 08/15/18 19:00 07:00 Intake Total 1030 ml Balance 1030 ml Intake Oral 1030 ml # Voids 5 2 # Bowel Movements 1 Laboratory Tests 08/14/18 11:10: Sodium Level 140, Potassium Level 3.9, Chloride Level 106, Carbon Dioxide Level 30, Anion Gap 4L, Blood Urea Nitrogen 12, Creatinine 1.0, Estimat Glomerular Filtration Rate > 60, Glucose Level 116H, Calcium Level 11.2H 08/15/18 05:50: Sodium Level 142, Potassium Level 3.9, Chloride Level 110H, Carbon Dioxide Level 27, Anion Gap 5, Blood Urea Nitrogen 10, Creatinine 1.0, Estimat Glomerular Filtration Rate > 60, Glucose Level 89, Calcium Level 9.8 Height (Feet): 5 Height (Inches): 8.00 Weight (Pounds): 181 General Appearance: no apparent distress, alert EENT: PERRL/EOMI, normal ENT inspection Neck: non-tender, normal alignment Cardiovascular: normal rate, regular rhythm Respiratory/Chest: lungs clear, normal breath sounds Abdomen: non tender, soft Extremities: non-tender Edema: no edema noted Arm (L), no edema noted Arm (R), no edema noted Leg (L), no edema noted Leg (R), no edema noted Pedal (L), no edema noted Pedal (R), no edema noted Generalized Neurologic: alert, oriented x 3 Skin: warm/dry Pawan Arteaga August 15, 2018 10:16
--- NOTE | 2018-08-15 10:43 | NUR ---
NM Parathyroid Sestamibi Scan complete.
--- NOTE | 2018-08-15 11:04 | NUR ---
*-* INSURANCE *-* UPDATED HAVE BEEN FAXED TO: [facility] [place]: [place] P:[phone] F;[phone]
--- NOTE | 2018-08-15 11:32 | Diagnostic Imaging Report ---
Indication: 68-year-old female with hypercalcemia, elevated PTH TECHNIQUE: 21 mCi of technetium 99m sestamibi was injected intravenously. 15 minute and two-hour delayed planar images of the head and neck and mediastinum obtained. COMPARISON: None FINDINGS: No correlation ultrasound of the thyroid/parathyroid is available. Initial images demonstrate a relatively homogeneous appearing thyroid gland with uptake in both lobes as well as uptake in the lower part presumably isthmus region. Delayed images show vague uptake in both thyroid beds. There is no single intense focus of uptake to suggest a single parathyroid adenoma. However, the presence of residual activity in the thyroid bed suggests either parathyroid hypertrophy (sometimes seen in renal failure), small bilateral, multifocal parathyroid adenomas, or false positive activity due to presence of thyroid disease such as thyroid adenomas. Clinical correlation as well as ultrasound evaluation of the thyroid gland is recommended. IMPRESSION: Equivocal evaluation. Vague increased uptake bilaterally within the thyroid bed on delayed images suggest presence of hypertrophied parathyroid tissue, adenomata or could be due to thyroid disease. Clinical correlation needed as well as ultrasound.
[2018-08-15] MEDS ORDERED: Tubing IV Secondary IV ONE (11:59)
--- NOTE | 2018-08-15 12:07 | NUR ---
NURSE NOTES: Dr. Dunbar ordered D/C. Paperwork prepared and pt ready to sign when results of NM parathyroid came in. Made Dr. Mike aware of results and he said to hold the D/C and keep the patient to be seen by Dr. Hardy. Pt refused to stay and wanted to leave AMA. Explained risks to pt about leaving AMA. Explained benefits of staying. Asked patient to just wait to see Dr. Hardy before making her decision. Pt would not change her mind. Pt signed AMA paperwork and said "I will just follow up with my primary doctor." IV, wristband, and hall monitor removed. Pt ambulated from floor.
--- NOTE | 2018-08-18 11:15 | Discharge Summary ---
Discharge Summary Discharge Summary _ DATE OF ADMISSION: 08/12/2018 DATE OF DISCHARGE: 08/15/2018 Patient signed AGAINST MEDICAL ADVICE REASON FOR ADMISSION: 68 years old female with past medical history of hypertension, degenerative joint disease, chronic low back pain, presented to the hospital for low abdominal pain. Patient also reported low back pain. Upon evaluation in the emergency department laboratory work-up revealed no leukocytosis, stable hemoglobin and hematocrit. Elevated calcium -15.4. BUN 26 creatinine 1.3. Stable other electrolytes. Total protein slightly elevated 9.0 . Urinalysis revealed no evidence of UTI, +[address] of the abdomen and pelvis demonstrated no acute findings in the abdomen or pelvis. Disc herniation at L4-5 and L5-S1 noted. Patient subsequently was admitted for further evaluation and management of hypercalcemia to telemetry floor. CONSULTANTS: manager environmental affairs Dr. Mike pain specialist Dr. Rojas HOSPITAL COURSE: Patient admitted to telemetry floor started on the IV hydration. Ham Stripper closely followed. Patient was continued on aggressive hydration. Serum and urine electrophoresis were ordered to evaluate for possible monoclonal gammopathy Serum protein electrophoresis negative. Urine protein electrophoresis at the time of this dictation still pending. Patient was treated with dose of [place]. Zometa was not available at this facility. Hydrochlorothiazide was discontinued , as potentially contributing to hypercalcemia. Per manager environmental affairs, creatinine was slightly elevated likely secondary to volume depletion and hypercalcemia. Renal parameters and electrolytes were closely monitored. Electrolytes corrected as needed. Nephrotoxins were avoided. Acute kidney, likely due to volume depletion/dehydration and hypercalcemia, resolved. Creatinine down to normal. Calcium down to normal 9.8 . PTH elevated, possible primary hypothyroidism. Pain management was addressed as per pain specialist recommendation. Patient has herniated disc at L4-L5 and L5-S1. Pain was controlled. Abdominal pain was possibly secondary to hypercalcemia, resolved. DVT and GI prophylaxis provided Blood pressure was managed with calcium channel liana. Supportive care provided. Antiemetic provided as needed. Patient was able to tolerate diet. Bowel regimen instituted. Parathyroid scan revealed vague increased uptake bilaterally within the thyroid bed . Delayed images suggest presence of hypertrophied parathyroid tissue, adenomata or could be due to thyroid disease. Surgery consult was requested. Patient did not want to wait for a surgeon and decided to leave AGAINST MEDICAL ADVICE. The risks and consequences of signing AGAINST MEDICAL ADVICE were discussed with patient in detail. Patient verbalized understanding, but signed the form and left. Patient stated that she will follow-up with her primary care provider next week. Patient was recommended outpatient thyroid ultrasound. FINAL DIAGNOSES: Hypercalcemia Probably primary hyperparathyroidism Acute kidney injury , secondary to dehydration and hypercalcemia - resolved Intractable back pain Lumbar herniated disc L4-5 , L5-S1. Lumbar radiculopathy I have been assigned to dictate discharge summary for this account. I was not involved in the patient's management. Delilah Huynh NP Aug 18, 2018 11:15
== END 2018-08-15 12:00 | disposition left against medical advice (07) | DRG 644 ==
LOC: EMR 09:57 → 2E 13:22 → EDBEDREQ 13:33 → 2E 08-14 16:17
DX: E21.0 Primary hyperparathyroidism (principal); N17.9 Acute kidney failure, unspecified; M51.17 Intervertebral disc disorders with radiculopathy, lumbosacral region; E86.0 Dehydration; Z53.21 Procedure and treatment not carried out due to patient leaving prior to being seen by health care provider; I10 Essential (primary) hypertension; M50.11 Cervical disc disorder with radiculopathy, high cervical region
CPT/HCPCS: 36415; 74177; 78070; 80048; 80053; 81003; 82306; 83690; 83970; 84165; 85025; 85610; 85730; 86850; 86900; 86901; 93005; 96361; 96374; 96375; 99285; J2405; J2430

== ENCOUNTER 2019-02-25 20:25 | Emergency (ER) | payer OTHER, MEDICAID ==
[~2019-02-25] VITALS: Ht 172.7 cm; Wt 88.0 kg
[~2019-02-25 20:25] MED LIST changes: +NORVASC5 MG ORAL
[2019-02-25 20:33] VITALS: BP 114/80
--- NOTE | 2019-02-25 20:50 | Emergency Room Report ---
History of Present Illness General Chief Complaint: Pain Source: Medical Record Present Illness HPI Patient is a 68-year-old female presents after increased bilateral leg pain as well as left upper extremity pain. She reports having fallen 3 days prior to arrival. She reports having increased pain to the left upper extremity. She denies difficulty with movement. She reports having increased discomfort to due to cactus spines. She denies other locations of injury. Allergies: Coded Allergies: AMOXICILLIN (Verified Allergy, Severe, HIVES,ITCHING, 06/04/08) PENICILLINS (Unverified Allergy, Unknown, 04/30/14) Patient History Reviewed Nursing Documentation: PMH: Agreed; PSxH: Agreed Nursing Documentation-PMH Past Medical History: No History, Except For Hx Cardiac Problems: Yes Hx Hypertension: Yes Hx COPD: Yes Hx Cancer: No Hx Gastrointestinal Problems: Yes Hx Neurological Problems: No Review of Systems All Other Systems: negative except mentioned in HPI Physical Exam Vital Signs Date Time Temp Pulse Resp B/P (MAP) Pulse Ox O2 Delivery O2 Flow Rate FiO2 02/25/19 20:33 97.9 81 18 114/80 (91) 96 Room Air General Appearance: well appearing, alert, GCS 15, Chronically Ill Head: normocephalic, atraumatic ENT: hearing grossly normal, normal voice Neck: full range of motion, supple Respiratory: no respiratory distress, speaking full sentences Neurologic: alert, motor strength/tone normal, normal gait Psychiatric: mood/affect normal Skin: other - slight erythema to left upper extremity, no abscesss Medical Decision Making Diagnostic Impression: Primary Impression: Fall Additional Impressions: Chronic pain Folliculitis ER Course Patient presented for left upper extremity pain. Differential diagnosis include was not limited to cellulitis, folliculitis, foreign body among others. Patient has a benign exam and does not appear to require any imaging or laboratory testing at this time. Patient was noted to have some erythema to her left upper extremity. This does not appear to be any evidence of abscess at this time. Patient will be given prescription for medications for superficial infection. She is advised to follow-up with her primary care physician for recheck. The patient is advised to follow up with primary care doctor in 1-2 days. Patient is advised to return if any worsening condition or if any changes in status that are concerning. This report is dictated with [email or web address] assembler camper software which may occasionally lead to discrepancies related to use of this software. Last Vital Signs Date Time Temp Pulse Resp B/P (MAP) Pulse Ox O2 Delivery O2 Flow Rate FiO2 02/25/19 20:33 97.9 81 18 114/80 96 Room Air Status: improved Disposition: HOME, SELF-CARE Condition: Stable Scripts Trimethoprim/Sulfamethoxazole 160/800* (BACTRIM DS TABLET*) 1 Each Tablet 1 TAB ORAL TWICE A DAY, #14 TAB Prov: Mark Perrin MD 02/25/19 Mark Perrin MD Feb 25, 2019 20:50
[2019-02-25] MEDS ORDERED: BACTRIM DS TAB1 EAC1 ORAL (20:52)
[2019-02-25] MEDS ORDERED: Azithromycin 250mg tab ORAL ONE (21:00)
[2019-02-25 21:05] VITALS: BP 125/76
== END 2019-02-25 22:00 | disposition home or self-care (01) ==
LOC: EMR 22:00
DX: M79.602 Pain in left arm (principal); M79.605 Pain in left leg; M79.604 Pain in right leg; I10 Essential (primary) hypertension; J44.9 Chronic obstructive pulmonary disease, unspecified; L73.9 Follicular disorder, unspecified; G89.29 Other chronic pain; Z88.0 Allergy status to penicillin
CPT/HCPCS: 99282

== ENCOUNTER 2019-05-04 15:49 | Emergency (ER) | payer OTHER, MEDICAID ==
[~2019-05-04] VITALS: Ht 170.2 cm; Wt 84.8 kg
[~2019-05-04 15:49] MED LIST changes: +BACTRIM DS TAB1 EAC1 ORAL
--- NOTE | 2019-05-04 16:26 | NUR ---
ED Nurse Note: Pt ambulated to ed c/o flu like symptoms; runny nose, congestion, cough with phlegm, "nose burning" . pt denies travel out of country.
[2019-05-04 16:27] VITALS: BP 138/97
--- NOTE | 2019-05-04 17:21 | Emergency Room Report ---
History of Present Illness General Chief Complaint: Flu Like Symptoms Source: Patient Present Illness HPI 68-year-old female presents to the emergency department complaining of significant nasal congestion with difficulty breathing through her nose for almost 2 weeks. Patient reports she has been having increased sneezing as well. Patient reports some pressure-like discomfort in her nasal sinuses. Patient denies cough, fevers, chills, ear pain, or sore throat. Patient states she is still too proved to get her medications for her symptoms. She reports history of high blood pressure and sciatica. She reports today she began having persistent rhinorrhea as well. She denies any other aggravating or relieving factors at this time. Patient denies pain at this time. She is UTD with vaccinations. She denies rashes. Allergies: Coded Allergies: AMOXICILLIN (Verified Allergy, Severe, HIVES,ITCHING, 06/04/08) PENICILLINS (Unverified Allergy, Unknown, 04/30/14) Patient History Past Medical History: see triage record, HTN Past Surgical History: none Pertinent Family History: none Now: No Reviewed Nursing Documentation: PMH: Agreed; PSxH: Agreed Nursing Documentation-PMH Past Medical History: No Stated History Hx Cardiac Problems: Yes Hx Hypertension: Yes Hx COPD: Yes Hx Cancer: No Hx Gastrointestinal Problems: Yes Hx Neurological Problems: No Review of Systems All Other Systems: negative except mentioned in HPI Physical Exam Vital Signs Date Time Temp Pulse Resp B/P (MAP) Pulse Ox O2 Delivery O2 Flow Rate FiO2 05/04/19 16:18 98.2 70 20 138/97 (111) 98 Room Air Sp02 EP Interpretation: reviewed, normal General Appearance: no apparent distress, alert, GCS 15, non-toxic Head: normocephalic, atraumatic Eyes: bilateral eye normal inspection, bilateral eye PERRL, bilateral eye EOMI - without pain ENT: hearing grossly normal, normal pharynx, normal voice, TMs + canals normal , uvula midline, moist mucus membranes, nasal congestion, other - TTP to the bilateral maxillary sinuses. Neck: full range of motion Respiratory: chest non-tender, lungs clear, normal breath sounds, no wheezing, speaking full sentences Cardiovascular #1: regular rate, rhythm Musculoskeletal: back normal, normal range of motion, gait/station normal, non- tender Neurologic: alert, motor strength/tone normal, oriented x3, sensory intact, responsive, speech normal Psychiatric: judgement/insight normal Lymphatic: no adenopathy Medical Decision Making PA Attestation Dr. Crenshaw is my supervising Physician whom patient management has been discussed with. Diagnostic Impression: Primary Impression: Sinusitis nasal Qualified Codes: J01.10 - Acute frontal sinusitis, unspecified ER Course 68-year-old female presents to the emergency department complaining of significant nasal congestion with difficulty breathing through her nose for almost 2 weeks. Patient reports she has been having increased sneezing as well. Patient reports some pressure-like discomfort in her nasal sinuses. Patient denies cough, fevers, chills, ear pain, or sore throat. Patient states she is still too proved to get her medications for her symptoms. She reports history of high blood pressure and sciatica. She reports today she began having persistent rhinorrhea as well. She denies any other aggravating or relieving factors at this time. Patient denies pain at this time. She is UTD with vaccinations. She denies rashes. Ddx considered but are not limited to Sinusitis, Mucor, Allergic Rhinitis, URI, strep pharyngitis, meningitis. Vital signs: Pt. is afebrile, the remaining VS are WNL H&PE are most consistent with moderate nasal congestion without pharynx involvement. This patient has has Sinusitis lasting greater than 10 days and is a candidate for antibiotic treatment. Pt. has PCN allergy ORDERS: none required at this time, the diagnosis is clinical ED INTERVENTIONS: None required at this time. -I do not identify an emergent condition at this time. With current presentation , pt. is stable for close outpatient follow up and conservative treatment. D/ w pt. to return promptly to ED with worsening or new symptoms.- Pt. verbalizes' understanding and agreement with proposed treatment plan. DISCHARGE: At this time pt. is stable for d/c to home. Will provide printed patient care instructions, and any necessary prescriptions. Care plan and follow up instructions have been discussed with the patient prior to discharge. Last Vital Signs Date Time Temp Pulse Resp B/P (MAP) Pulse Ox O2 Delivery O2 Flow Rate FiO2 05/04/19 16:27 98.2 70 20 138/97 98 Room Air Status: improved Disposition: HOME, SELF-CARE Condition: Stable Scripts Cetirizine Hcl/Pseudoephedrine (ZYRTEC-D TABLET) 1 Each Tab.er.12h 1 EACH ORAL Q12HR, #30 TAB Prov: Kenia López 05/04/19 Clindamycin HCl (Clindamycin HCl) 300 Mg Capsule 300 MG ORAL Q6H for 7 Days, #28 CAP Prov: Kneia López 05/04/19 Doxycycline Monohydrate* (DOXYCYCLINE MONOHYDRATE*) 100 Mg Capsule 100 MG ORAL TWICE A DAY for 7 Days, #14 CAP 0 Refills Prov: Kenia López 05/04/19 Patient Instructions: Sinusitis, Adult, [id number] Additional Instructions: Take medications as directed. Follow up with a Primary Care Provider in 3-5 days, even if your symptoms have resolved. Return sooner to ED if new symptoms occur, or current symptoms become worse. - Please note that this Emergency Department Report was dictated using Vidaaointernal medicine specialist technology software, occasionally this can lead to erroneous entry secondary to interpretation by the dictation equipment. Kenia López May 04, 2019 17:21
[2019-05-04] MEDS ORDERED: DOXYCYCLINE MO100 MG ORAL (17:27)
[2019-05-04] MEDS ORDERED: CLEOCIN150 MG ORAL (17:27)
[2019-05-04] MEDS ORDERED: ZYRTEC-D TABLE1 EACH ORAL (17:27)
[2019-05-04 17:28] VITALS: BP 132/89
--- NOTE | 2019-05-04 17:28 | NUR ---
ER DISCHARGE NOTE: Patient is cleared to be discharged per ERMD, pt is aox4, on room air, with stable vital signs. pt was given dc and prescription instructions, pt was able to verbalize understanding, pt id band removed. pt is able to ambulate with steady gait. pt took all belongings.
== END 2019-05-04 17:29 | disposition home or self-care (01) ==
LOC: EMR 17:18
DX: J01.10 Acute frontal sinusitis, unspecified (principal); Z88.0 Allergy status to penicillin; I10 Essential (primary) hypertension; J44.9 Chronic obstructive pulmonary disease, unspecified
CPT/HCPCS: 99282

== ENCOUNTER 2019-08-21 20:54 | Emergency (ER) | payer OTHER, MEDICAID ==
[~2019-08-21] VITALS: Ht 170.2 cm; Wt 83.9 kg
[~2019-08-21 20:54] MED LIST changes: +CLEOCIN150 MG ORAL; +DOXYCYCLINE MO100 MG ORAL; +ZYRTEC-D TABLE1 EACH ORAL
--- NOTE | 2019-08-21 21:06 | NUR ---
ED Nurse Note: PT walked in to ED for C/O constipation x 1 week. last BM is about 7 days ago per pt.
[2019-08-21 21:07] VITALS: BP 122/86
[2019-08-21] MEDS ORDERED: MILK OF MA400 MG/51 ORAL ×2 (21:38)
[2019-08-21] MEDS ORDERED: MAGNESIUM CITR296 M1 PO (21:41)
[2019-08-21 21:45] VITALS: BP 130/80
--- NOTE | 2019-08-21 21:45 | NUR ---
ER DISCHARGE NOTE: Patient is cleared to be discharged per ERMD, pt is aox4, on room air, with stable vital signs. pt was given dc and prescription instructions, pt was able to verbalize understanding, pt id band removed without complications. pt is able to ambulate with steady gait. pt took all belongings.
--- NOTE | 2019-08-21 21:45 | Emergency Room Report ---
History of Present Illness General Chief Complaint: Constipation Source: Patient Present Illness HPI Patient is a 69-year-old female reports having increased constipation for 1 week. Patient is normally on chronically pain medication. She had been reportedly taking [place]. She reports having decreased bowel movements for the past 1 week. She states that she had not been vomiting. Denies any fever. Reports having taken lactulose without any improvement. Denies any weakness to her extremities. Allergies: Coded Allergies: AMOXICILLIN (Verified Allergy, Severe, HIVES,ITCHING, 06/04/08) PENICILLINS (Unverified Allergy, Unknown, 04/30/14) COVID-19 Screening Contact w/high risk pt: No Recent Travel to affected area: No Experienced COVID-19 symptoms?: No COVID-19 Testing performed FIELD ARTILLERY OPERATIONS MAN: No Patient History Past Medical History: see triage record Reviewed Nursing Documentation: PMH: Agreed; PSxH: Agreed Nursing Documentation-PMH Past Medical History: No History, Except For Hx Cardiac Problems: Yes Hx Hypertension: Yes Hx COPD: Yes Hx Cancer: No Hx Gastrointestinal Problems: Yes Hx Neurological Problems: No Review of Systems All Other Systems: negative except mentioned in HPI Physical Exam Vital Signs Date Time Temp Pulse Resp B/P (MAP) Pulse Ox O2 Delivery O2 Flow Rate FiO2 08/21/19 21:04 98.4 89 16 130/86 (101) 97 Room Air Sp02 EP Interpretation: reviewed, normal General Appearance: normal inspection, well appearing, no apparent distress, alert, GCS 15 Head: atraumatic ENT: normal ENT inspection, hearing grossly normal, normal voice Neck: normal inspection, full range of motion, supple, no bony tend Respiratory: normal inspection, lungs clear, normal breath sounds, no respiratory distress, no retraction, no wheezing Cardiovascular #1: regular rate, rhythm, no edema Gastrointestinal: normal inspection, normal bowel sounds, non tender, soft, no guarding, no hernia Genitourinary: no CVA tenderness Musculoskeletal: normal inspection, back normal, normal range of motion Neurologic: alert, responsive, speech normal, normal inspection Psychiatric: normal inspection, judgement/insight normal, mood/affect normal Medical Decision Making Diagnostic Impression: Primary Impression: Constipation Additional Impression: Chronic low back pain with sciatica ER Course Patient presented for constipation. Differential diagnosis includes not limited to opioid induced constipation, fecal impaction, bowel obstruction among others. Patient has a benign exam and does not appear to require any imaging or laboratory testing at this time. Patient does not appear to have any evidence of abdominal distention or tenderness. Patient appears to be stable for outpatient management. She was given prescription for magnesium citrate. She was advised to follow-up with her primary care physician for recheck in 1 to 2 days. She is to return if she began having fever persistent vomiting. Patient is advised to return if any worsening condition or if any changes in status that are concerning. This report is dictated with [employer] exhaust emissions inspector software which may occasionally lead to discrepancies related to use of this software. Last Vital Signs Date Time Temp Pulse Resp B/P (MAP) Pulse Ox O2 Delivery O2 Flow Rate FiO2 08/21/19 21:07 98.4 80 16 122/86 97 Room Air Status: improved Disposition: HOME, SELF-CARE Condition: Stable Scripts Magnesium Citrate (MAGNESIUM CITRATE) 296 Ml Solution 15 ML PO THREE TIMES A DAY for constipation, #296 ML Prov: Mark Perrin MD 08/21/19 Patient Instructions: Constipation, Adult Mark Perrin MD Aug 21, 2019 21:45
== END 2019-08-21 21:45 | disposition home or self-care (01) ==
LOC: EMR 21:15
DX: K59.00 Constipation, unspecified (principal); M54.40 Lumbago with sciatica, unspecified side; G89.29 Other chronic pain; Z88.0 Allergy status to penicillin; I10 Essential (primary) hypertension; J44.9 Chronic obstructive pulmonary disease, unspecified
CPT/HCPCS: 99282

== ENCOUNTER 2020-02-18 16:45 | Emergency (ER) | payer OTHER, MEDICAID ==
[~2020-02-18] VITALS: Ht 170.2 cm; Wt 83.9 kg
[~2020-02-18 16:45] MED LIST changes: +MILK OF MA400 MG/51 ORAL
--- NOTE | 2020-02-18 17:00 | NUR ---
ED Nurse Note: Pt walked in to ED c/o right 3rd, 4th, 5th toe pain after hitting a hard object. nad noted, vss, ambulatory.
--- NOTE | 2020-02-18 17:07 | NUR ---
ED Nurse Note: xray at bedside
[2020-02-18] MEDS ORDERED: IBUPROFEN600 M1 ORAL (17:28)
--- NOTE | 2020-02-18 17:28 | Emergency Room Report ---
History of Present Illness General Chief Complaint: Lower Extremity Injury Source: Patient Present Illness HPI 69-year-old female with history of chronic back pain currently taking Lindsay here complaining of right 3rd-5th toe pain after accidentally hitting it to the corner of the door 2 days ago. Rates the pain 10 out of 10 without radiation. However patient walked around the ER several times as did not want to be sit on the chair and the examiner. Denies tingling or numbness. Denies calf tenderness. Is not taking any blood thinners. Denies head injury, loss of consciousness, chest pain. Patient is neurovascularly intact. Allergies: Coded Allergies: AMOXICILLIN (Verified Allergy, Severe, HIVES,ITCHING, 06/04/08) PENICILLINS (Unverified Allergy, Unknown, 04/30/14) COVID-19 Screening Contact w/high risk pt: No Recent Travel to affected area: No Experienced COVID-19 symptoms?: No COVID-19 Testing performed SCHOOL YEAR NANNY: No - 3 months ago COVID-19 Screening: Negative COVID-19 COVID-19 Testing Source: clinic Patient History Past Medical History: see triage record Past Surgical History: none Pertinent Family History: none Now: No Immunizations: UTD Reviewed Nursing Documentation: PMH: Agreed; PSxH: Agreed Nursing Documentation-PMH Hx Cardiac Problems: Yes Hx Hypertension: Yes Hx COPD: Yes Hx Cancer: No Hx Gastrointestinal Problems: Yes Hx Neurological Problems: No Review of Systems All Other Systems: negative except mentioned in HPI Physical Exam Vital Signs Date Time Temp Pulse Resp B/P (MAP) Pulse Ox O2 Delivery O2 Flow Rate FiO2 02/18/20 16:49 98.2 74 16 126/81 (96) 98 Room Air Sp02 EP Interpretation: reviewed, normal General Appearance: no apparent distress, alert, GCS 15, non-toxic Head: normocephalic, atraumatic Eyes: bilateral eye normal inspection, bilateral eye PERRL ENT: hearing grossly normal, normal pharynx, no angioedema, normal voice Neck: full range of motion, supple/symm/no masses Respiratory: chest non-tender, lungs clear, normal breath sounds, speaking full sentences Cardiovascular #1: regular rate, rhythm, no edema Cardiovascular #2: 2+ dorsalis pedis (R), 2+ dorsalis pedis (L) Gastrointestinal: soft Rectal: deferred Musculoskeletal: back normal, no calf tenderness, tender - right 3-5th toe Neurologic: alert, motor strength/tone normal, oriented x3, sensory intact, responsive, speech normal Psychiatric: judgement/insight normal, memory normal, mood/affect normal, no suicidal/homicidal ideation Skin: no rash Lymphatic: no adenopathy Procedures Splinting Splinting : Consent: Verbal Location: Right foot Pre-Made Type: Vahid tape and postop shoe Pre-Proc Neuro Vasc Exam: normal Post-Proc Neuro Vasc Exam: normal Patient Tolerated: Well Complications: None Medical Decision Making PA Attestation All my diagnosis and treatment plans were reviewed ad discussed with my supervising physician Dr. Giang Diagnostic Impression: Primary Impression: Crush injury, toe ER Course 69-year-old female with history of chronic back pain currently taking Lindsay here complaining of right 3rd-5th toe pain after accidentally hitting it to the corner of the door 2 days ago. Rates the pain 10 out of 10 without radiation. However patient walked around the ER several times as did not want to be sit on the chair and the examiner. Denies tingling or numbness. Denies calf tenderness. Is not taking any blood thinners. Denies head injury, loss of consciousness, chest pain. Patient is neurovascularly intact. Ddx considered but are not limited to: foot fracture, foot sprain, foot contusion, foot strain Vital signs: are WNL, pt. is afebrile H&PE are most consistent with: Crushing injury toes ORDERS: foot Xray, Motrin ED INTERVENTIONS: Vahid tape, postop shoe DISCHARGE: At this time pt. is stable for d/c to home. Will provide printed patient care instructions, and any necessary prescriptions. Care plan and follow up instructions have been discussed with the patient prior to discharge. Patient take medication as directed, follow animal control specialist, worsening symptoms return to the emergency room Other X-Ray Diagnostic Results Other X-Ray Diagnostic Results : X-Ray ordered: right foot # of Views/Limited Vs Complete: 3 View Indication: Pain EP Interpretation: Yes LUZ Xray: Interpretation reviewed, by supervising MD, and agrees with finding s. Interpretation: no dislocation, no soft tissue swelling, other - possible hairline fx 3-5th toes Impression: Other - possible crushing injury Electronically Signed by: Nahal Saheli PA-C Last Vital Signs Date Time Temp Pulse Resp B/P (MAP) Pulse Ox O2 Delivery O2 Flow Rate FiO2 02/18/20 16:49 98.2 74 16 126/81 (96) 98 Room Air Disposition: HOME, SELF-CARE Condition: Stable Scripts Ibuprofen* (MOTRIN*) 600 Mg Tablet 600 MG ORAL Q8H PRN for FOR PAIN, #30 TAB 0 Refills Prov: Amol Delaney 02/18/20 Patient Instructions: Crush Injury, Fingers or Toes, [id number] Additional Instructions: Take medication as directed, follow with primary care provider, if worsening symptoms return to the emergency room Amol Delaney Feb 18, 2020 17:28
[2020-02-18 17:36] VITALS: BP 136/78
--- NOTE | 2020-02-18 17:37 | NUR ---
ED Nurse Note: Pt cleared by health care Provider for discharge. DC instructions/prescription was given and explained to pt and verbalized understanding of teachings. All medical deviecs such as ID band removed. Pt is AAO x4, ambulatory and left with all personal belongings. vss, nad noted. post op shoe provided.
--- NOTE | 2020-02-19 17:44 | Diagnostic Imaging Report ---
Indication: Trauma, pain Technique: 3 views right foot Comparison: none Findings: There is mild hallux valgus and metatarsus adductus. There is mild hammertoe deformity of the second through fifth digits. There is a small plantar spur. No acute fracture. No dislocation. Impression: No acute process
== END 2020-02-18 17:57 | disposition home or self-care (01) ==
LOC: EMR 17:25
DX: M79.674 Pain in right toe(s) (principal); S97.121A Crushing injury of right lesser toe(s), initial encounter; I10 Essential (primary) hypertension; J44.9 Chronic obstructive pulmonary disease, unspecified; W22.8XXA Striking against or struck by other objects, initial encounter; Y93.01 Activity, walking, marching and hiking; Y92.019 Unspecified place in single-family (private) house as the place of occurrence of the external cause; Z88.0 Allergy status to penicillin; Z88.1 Allergy status to other antibiotic agents
CPT/HCPCS: 29515; 99283

== ENCOUNTER 2020-04-27 10:28 | Emergency (ER) | payer OTHER, MEDICAID ==
[~2020-04-27] VITALS: Ht 170.2 cm; Wt 83.9 kg
[~2020-04-27 10:28] MED LIST changes: +IBUPROFEN600 M1 ORAL
[2020-04-27 11:09] LABS: APPEARANCE,URINE SLIGHTLY CLOUDY; BILIRUBIN, URINE NEGATIVE (NEGATIVE); COLOR,URINE PALE YELLOW; GLUCOSE, URINE (UA) NEGATIVE (NEGATIVE); KETONES,URINE NEGATIVE (NEGATIVE); LEUKOCYTE ESTERASE ,URINE 1+ (NEGATIVE); NITRITE,URINE NEGATIVE (NEGATIVE); PH,URINE 6.5 (4.5-8.0); PROTEIN,URINE NEGATIVE (NEGATIVE); UROBILINOGEN,URINE NORMAL MG/DL (0.0-1.0)
--- NOTE | 2020-04-27 11:11 | Emergency Room Report ---
History of Present Illness General Chief Complaint: Abdominal Pain Source: Patient Present Illness HPI 69-year-old female here with right lower quadrant abdominal pain for several years. Patient has been to this emergency department several times in the past. She has undergone imaging and was admitted at 1 point collections medical advice. Says the pain is "gnawing" located in the right lower quadrant and radiates to the right lower back. Has not taken any medications for the pain. Denies fevers, chills, chest pain, palpitation, shortness of breath, nausea, vomiting, diarrhea, dysuria. Patient says that the pain started many years ago after she had a hysterectomy. Has had normal bowel movements and is passing gas. Allergies: Coded Allergies: AMOXICILLIN (Verified Allergy, Severe, HIVES,ITCHING, 06/04/08) PENICILLINS (Unverified Allergy, Unknown, 04/30/14) COVID-19 Screening Contact w/high risk pt: No Recent Travel to affected area: No Experienced COVID-19 symptoms?: No COVID-19 Testing performed DIRECTOR OF THERAPY SERVICES: No Nursing Documentation-[facility] Past Medical History: No History, Except For Hx Cardiac Problems: Yes Hx Hypertension: Yes Hx COPD: Yes Hx Cancer: No Hx Gastrointestinal Problems: Yes Hx Neurological Problems: No Review of Systems All Other Systems: negative except mentioned in HPI Physical Exam Vital Signs Date Time Temp Pulse Resp B/P (MAP) Pulse Ox O2 Delivery O2 Flow Rate FiO2 04/27/20 10:34 98.1 66 18 158/98 (118) 98 Room Air Sp02 EP Interpretation: reviewed, normal General Appearance: no apparent distress, alert, non-toxic Head: normocephalic, atraumatic Eyes: bilateral eye normal inspection, bilateral eye PERRL ENT: hearing grossly normal, normal pharynx, no angioedema, normal voice Neck: full range of motion, supple/symm/no masses Respiratory: chest non-tender, lungs clear, normal breath sounds, speaking full sentences Cardiovascular #1: regular rate, rhythm, no edema Cardiovascular #2: 2+ carotid (R), 2+ carotid (L), 2+ radial (R), 2+ radial (L), 2+ dorsalis pedis (R), 2+ dorsalis pedis (L) Gastrointestinal: normal bowel sounds, soft, non-distended, no guarding, no rebound, other - Mild subjective right lower quadrant tenderness on palpation. No rebound or guarding or distention Rectal: deferred Genitourinary: normal inspection, no CVA tenderness Musculoskeletal: back normal, normal range of motion, calf tenderness, gait/station normal, non-tender Neurologic: alert, motor strength/tone normal, oriented x3, sensory intact, responsive, speech normal Psychiatric: judgement/insight normal, memory normal, mood/affect normal, no suicidal/homicidal ideation Reflexes: 3+ bicep (R), 3+ bicep (L), 3+ tricep (R), 3+ tricep (L), 3+ knee (R), 3+ knee (L) Lymphatic: no adenopathy Medical Decision Making Diagnostic Impression: Primary Impression: Abdominal pain ER Course EKG: Rate 74 bpm, NSR, no ischemia, intervals WNL. No ectopy Rhythm strip: patient monitored for arrhythmias - no malignant dysrhythmias, runs of PVCs, nor pauses noted Laboratory Tests Test 04/27/20 10:40 04/27/20 10:45 Urine Color Pale yellow Urine Appearance Slightly cloudy Urine pH 6.5 (4.5-8.0) Urine Specific [place] 1.015 (1.005-1.035) Urine Protein Negative (NEGATIVE) Urine Glucose (UA) Negative (NEGATIVE) Urine Ketones Negative (NEGATIVE) Urine Blood 1+ (NEGATIVE) H Urine Nitrite Negative (NEGATIVE) Urine Bilirubin Negative (NEGATIVE) Urine Urobilinogen Normal MG/DL (0.0-1.0) Urine Leukocyte Esterase 1+ (NEGATIVE) H Urine RBC 0-2 /HPF (0 - 2) Urine WBC 0-2 /HPF (0 - 2) Urine Squamous Epithelial Cells Occasional /LPF Urine Bacteria Occasional /HPF (NONE) White Blood Count 8.6 K/UL (4.8-10.8) Red Blood Count 4.66 M/UL (4.20-5.40) Hemoglobin 13.5 G/DL (12.0-16.0) Hematocrit 43.3 % (37.0-47.0) Mean Corpuscular Volume 93 FL (80-99) Mean Corpuscular Hemoglobin 29.0 PG (27.0-31.0) Mean Corpuscular Hemoglobin Concent 31.3 G/DL (32.0-36.0) L Red Cell Distribution Width 15.4 % (11.6-14.8) H Platelet Count 244 K/UL (150-450) Mean Platelet Volume 10.7 FL (6.5-10.1) H Neutrophils (%) (Auto) 51.1 % (45.0-75.0) Lymphocytes (%) (Auto) 36.5 % (20.0-45.0) Monocytes (%) (Auto) 8.2 % (1.0-10.0) Eosinophils (%) (Auto) 2.4 % (0.0-3.0) Basophils (%) (Auto) 1.7 % (0.0-2.0) Sodium Level 145 MMOL/L (136-145) Potassium Level 3.9 MMOL/L (3.5-5.1) Chloride Level 108 MMOL/L (98-107) H Carbon Dioxide Level 32 MMOL/L (21-32) Anion Gap 5 mmol/L (5-15) Blood Urea Nitrogen 22 mg/dL (7-18) H Creatinine 1.3 MG/DL (0.55-1.30) Estimated Glomerular Filtration Rate 49.1 mL/min (>60) Glucose Level 67 MG/DL (74-106) L Calcium Level 11.4 MG/DL (8.5-10.1) H Total Bilirubin 0.4 MG/DL (0.2-1.0) Aspartate Amino Transferase (AST) 19 U/L (15-37) Alanine Aminotransferase (ALT) 19 U/L (12-78) Alkaline Phosphatase 89 U/L (46-116) Troponin I 0.000 ng/mL (0.000-0.056) Total Protein 7.7 G/DL (6.4-8.2) Albumin 4.2 G/DL (3.4-5.0) Globulin 3.5 g/dL Albumin/Globulin Ratio 1.2 (1.0-2.7) Lipase 198 U/L (73-393) ddx: Hernia, bladder or kidney stones, diverticulitis, enteritis, appendicitis, genital pathology 69-year-old female here with many years of abdominal pain. Patient has been seen here in this emergency department many times in the past for the same complaint. She has undergone imaging which has been negative. Patient had a benign physical examination. Was given Toradol with resolution of her pain. CBC, CMP, troponin, EKG, lipase all unremarkable. Patient was tolerating p.o. in the emergency department. Low likelihood for acute abdomen. She said that she had normal bowel movement and was passing flatus earlier today. She was told to follow-up with her primary care provider and return to the emergency department if symptoms worsen. She expressed understanding and was discharged. Last Vital Signs Date Time Temp Pulse Resp B/P (MAP) Pulse Ox O2 Delivery O2 Flow Rate FiO2 04/27/20 10:34 98.1 66 18 158/98 (118) 98 Room Air Scripts Ibuprofen* (MOTRIN*) 600 Mg Tablet 600 MG ORAL Q6H PRN for FOR PAIN, #20 TAB 0 Refills Prov: Isaiah Son M.D. 04/27/20 Isaiah Son M.D. Apr 27, 2020 11:11
[2020-04-27 11:14] LABS: BASOPHILS % (AUTO) 1.7 % (0.0-2.0); EOSINOPHILS % (AUTO) 2.4 % (0.0-3.0); HEMATOCRIT 43.3 % (37.0-47.0); HEMOGLOBIN 13.5 G/DL (12.0-16.0); LYMPHOCYTES % (AUTO) 36.5 % (20.0-45.0); MEAN CORPUSCULAR VOLUME 93 FL (80-99); MONOCYTES % (AUTO) 8.2 % (1.0-10.0); NEUTROPHILS % (AUTO) 51.1 % (45.0-75.0); PLATELET COUNT 244 K/UL (150-450); RED BLOOD COUNT 4.66 M/UL (4.20-5.40); RED CELL DISTRIBUTION WIDTH 15.4 % (11.6-14.8); WHITE BLOOD COUNT 8.6 K/UL (4.8-10.8)
[2020-04-27 11:15] VITALS: BP 154/89
[2020-04-27] MEDS ORDERED: IBUPROFEN600 M1 ORAL (11:21)
[2020-04-27] MEDS ORDERED: Ketorolac 30mg Inj IV ONE (11:30)
[2020-04-27 11:40] LABS: CALCIUM 11.4 MG/DL (8.5-10.1); CREATININE 1.3 MG/DL (0.55-1.30); POTASSIUM 3.9 MMOL/L (3.5-5.1)
[2020-04-27 11:44] LABS: ALBUMIN 4.2 G/DL (3.4-5.0); ALBUMIN/GLOBULIN RATIO 1.2 (1.0-2.7); BILIRUBIN,TOTAL 0.4 MG/DL (0.2-1.0)
--- NOTE | 2020-04-27 11:53 | NUR ---
ED Nurse Note: QUINND speaking to pt about tests results and dc plans.
[2020-04-27 11:58] VITALS: BP 145/76
--- NOTE | 2020-04-27 11:59 | NUR ---
ED Nurse Note: Pt cleared by health care Provider for discharge. DC instructions/prescription was given and explained to pt and verbalized understanding of teachings. All medical deviecs such as ID band removed. Pt is AAO x4, ambulatory and left with all personal belongings.
== END 2020-04-27 11:58 | disposition home or self-care (01) ==
LOC: EMR 11:56
DX: R10.31 Right lower quadrant pain (principal); I11.9 Hypertensive heart disease without heart failure; J44.9 Chronic obstructive pulmonary disease, unspecified; Z88.1 Allergy status to other antibiotic agents; Z88.0 Allergy status to penicillin
CPT/HCPCS: 36415; 80053; 81003; 83690; 84484; 85025; 93005; 96374; 99284; J1885